=== PATIENT | female | born 1965 | race Two or more races ===

== ENCOUNTER 2018-01-23 00:05 | Emergency (ER) | payer SELFPAY ==
[~2018-01-23] VITALS: Ht 149.9 cm; Wt 72.6 kg
[2018-01-23 01:29] LABS: Basophils # (auto) 0.1 uL; Eosinophils # (auto) 0.1 uL; Hemoglobin 12.6 g/dL (12.2-16.2); Lymphocytes # (auto) 2.5 uL; Monocytes # (auto) 0.5 uL; Monocytes % (auto) 8.3 % (0.0-12.0); Neutrophils # (auto) 3.3 uL; Nucleated Red Blood Cells % 0.1 %
[2018-01-23 01:31] LABS: Basophils % (auto) 0.8 % (0.0-2.0); Eosinophils % (auto) 2.3 % (0.0-7.0); Hematocrit 39.2 % (36.0-46.0); Lymphocytes % (auto) 37.9 % (10.0-50.0); Mean Corpuscular Hemoglobin 27.8 pg (28.0-32.0); Mean Corpuscular Hgb Conc. 32.1 g/dL (32.0-36.0); Mean Corpuscular Volume 86.4 fL (80.0-100.0); Neutrophils % (auto) 50.7 % (37.0-80.0); Platelet Count (auto) 488 10^3/uL (140-450); Red Blood Cells 4.54 10^6/uL (4.0-5.20); Red Cell Distribution Width 14.7 % (11.8-14.3); White Blood Cell 6.6 10^3/uL (4.4-10.8)
[2018-01-23 01:35] LABS: INR 0.95 (0.9-1.15); Partial Thromboplastin Time 26.6 sec (22.64-33.71); Prothrombin Time 10.4 sec (9.37-12.3)
[2018-01-23 01:40] LABS: Albumin 3.5 g/dL (3.4-5.0); BUN/Creatinine Ratio 22.9; Calcium 9.1 mg/dL (8.5-10.1); Potassium 3.8 mmol/L (3.5-5.1)
[2018-01-23 01:43] LABS: Bilirubin, Total 0.3 mg/dL (0.2-1.0); Total Protein 7.6 g/dL (6.4-8.2)
[2018-01-23] MEDS ORDERED: medroxyPROGESTERone ACETATE 5 MG TAB PO ONE (09:15)
[2018-01-23 10:13] LABS: Urine Bacteria NONE SEEN /hpf (None Seen); Urine Mucus FEW (None Seen); Urine WBC 10 /hpf (0 - 5)
[2018-01-23 10:59] VITALS: BP 136/74
== END 2018-01-23 11:09 | disposition home or self-care (01) ==
LOC: ER 00:05
DX: N92.1 Excessive and frequent menstruation with irregular cycle (principal); Z90.710 Acquired absence of both cervix and uterus; Z90.89 Acquired absence of other organs
CPT/HCPCS: 36415; 80053; 81001; 81025; 85025; 85610; 85730; 86850; 86900; 86901

== ENCOUNTER 2019-01-02 13:25 | Emergency (ER) | payer MEDICAID ==
[~2019-01-02] VITALS: Ht 149.9 cm; Wt 72.6 kg
[2019-01-02 14:19] LABS: Urine Bacteria FEW /hpf (None Seen); Urine Blood Negative /uL (Negative); Urine Mucus FEW (None Seen); Urine Specific Gravity 1.031 (1.001-1.035); Urine WBC 4 /hpf (0 - 5)
[2019-01-02 14:52] LABS: Basophils # (auto) 0.1 uL; Basophils % (auto) 1.1 % (0.0-2.0); Eosinophils # (auto) 0.1 uL; Eosinophils % (auto) 1.8 % (0.0-7.0); Hematocrit 38.6 % (36.0-46.0); Hemoglobin 12.5 g/dL (12.2-16.2); Lymphocytes # (auto) 2.1 uL; Lymphocytes % (auto) 27.4 % (10.0-50.0); Mean Corpuscular Hemoglobin 26.2 pg (28.0-32.0); Mean Corpuscular Hgb Conc. 32.3 g/dL (32.0-36.0); Monocytes # (auto) 0.5 uL; Monocytes % (auto) 6.4 % (0.0-12.0); Neutrophils # (auto) 4.9 uL; Neutrophils % (auto) 63.3 % (37.0-80.0); Platelet Count (auto) 523 10^3/uL (140-450); Red Blood Cells 4.77 10^6/uL (4.0-5.20); Red Cell Distribution Width 17.2 % (11.8-14.3); White Blood Cell 7.7 10^3/uL (4.4-10.8)
[2019-01-02 15:05] LABS: Albumin 3.2 g/dL (3.4-5.0); Anion Gap 7 (5-15); Blood Urea Nitrogen 17 mg/dL (7-18); Calcium 8.4 mg/dL (8.5-10.1); Carbon Dioxide 27 mmol/L (21-32); Chloride 106 mmol/L (98-107); Glucose 96 mg/dL (74-106); Potassium 3.7 mmol/L (3.5-5.1); Sodium 140 mmol/L (136-145)
[2019-01-02 15:28] LABS: Alanine Aminotransferase 48 U/L (13-56); Aspartate Aminotransferase 34 U/L (15-37); BUN/Creatinine Ratio 15.5; GFR African American 67 mL/min; GFR Non-African American 55 mL/min
[2019-01-02 15:32] LABS: Alkaline Phosphatase 91 U/L (45-117); Bilirubin, Total 0.2 mg/dL (0.2-1.0); Total Protein 7.7 g/dL (6.4-8.2)
[2019-01-02 18:24] VITALS: BP 121/78
== END 2019-01-02 18:27 | disposition home or self-care (01) ==
LOC: ER 13:25
DX: R55 Syncope and collapse (principal); R07.89 Other chest pain; Z90.49 Acquired absence of other specified parts of digestive tract; Z98.51 Tubal ligation status
CPT/HCPCS: 36415; 70450; 80053; 81001; 84484; 85025; 93005

== ENCOUNTER 2019-01-17 14:26 | Emergency (ER) | payer MEDICAID ==
[~2019-01-17] VITALS: Ht 149.9 cm; Wt 78.0 kg
[2019-01-17 15:44] VITALS: BP 137/79
[2019-01-17] MEDS ORDERED: LIDOCAINE 2% (LOCAL ANESTH.) PF 5ml SDV ONE (16:06)
[2019-01-17] MEDS ORDERED: cefTRIAXone SOD 1,000 MG VL IM ONE (16:15)
[2019-01-17] MEDS ORDERED: LIDOCAINE HCL (LOCAL ANESTH.) 0.5 % 50ML MDV IJ ONE (16:15)
[2019-01-17] MEDS ORDERED: methylPREDNISolone SOD SUCC 125 MG/2 ML VL IM ONE (16:15)
== END 2019-01-17 16:43 | disposition home or self-care (01) ==
LOC: ER 14:30
DX: H60.12 Cellulitis of left external ear (principal); Z90.49 Acquired absence of other specified parts of digestive tract; Z90.89 Acquired absence of other organs; Z98.51 Tubal ligation status
CPT/HCPCS: 96372; 99283; J0696; J2001; J2930

== ENCOUNTER 2019-05-21 09:43 | Emergency (ER) | payer MEDICAID ==
[~2019-05-21] VITALS: Ht 149.9 cm; Wt 74.8 kg
[2019-05-21 09:54] VITALS: BP 120/81
[2019-05-21] MEDS ORDERED: methylPREDNISolone SOD SUCC 125 MG/2 ML VL IM ONE (10:30)
== END 2019-05-21 10:58 | disposition home or self-care (01) ==
LOC: ER 09:50
DX: S80.862A Insect bite (nonvenomous), left lower leg, initial encounter (principal); S80.861A Insect bite (nonvenomous), right lower leg, initial encounter; L23.9 Allergic contact dermatitis, unspecified cause; Z90.49 Acquired absence of other specified parts of digestive tract; Z98.51 Tubal ligation status; W57.XXXA Bitten or stung by nonvenomous insect and other nonvenomous arthropods, initial encounter; Y93.89 Activity, other specified; Y99.8 Other external cause status; Y92.59 Other trade areas as the place of occurrence of the external cause
CPT/HCPCS: 96372; 99283; J2930

== ENCOUNTER → 2021-09-13 | Emergency (ER) | payer MEDICAID ==
[~2021-09-13] VITALS: Ht 149.9 cm; Wt 72.6 kg
[2021-09-13 05:10] VITALS: BP 141/92
== END | disposition home or self-care (01) ==
LOC: ER 04:42
DX: L02.416 Cutaneous abscess of left lower limb (principal); E66.9 Obesity, unspecified; Z68.32 Body mass index [BMI] 32.0-32.9, adult; Z90.49 Acquired absence of other specified parts of digestive tract; Z98.51 Tubal ligation status

== ENCOUNTER 2022-09-13 14:21 | Emergency (ER) | payer MEDICAID ==
[~2022-09-13] VITALS: Ht 149.9 cm; Wt 72.0 kg
[2022-09-13 15:04] LABS: Basophils # (auto) 0.1 10 ^3/uL (0-0.2); Eosinophils # (auto) 0.1 10 ^3/uL (0-0.8); Lymphocytes # (auto) 1.9 10 ^3/uL (0.4-5.4); Neutrophils # (auto) 6.3 10 ^3/uL (1.6-8.6)
[2022-09-13 15:10] LABS: Basophils % (auto) 0.6 % (0.0-2.0); Eosinophils % (auto) 0.6 % (0.0-7.0); Hematocrit 42.3 % (36.0-46.0); Hemoglobin 13.5 g/dL (12.2-16.2); Lymphocytes % (auto) 21.3 % (10.0-50.0); Mean Corpuscular Hemoglobin 26.7 pg (28.0-32.0); Mean Corpuscular Hgb Conc. 31.8 g/dL (32.0-36.0); Mean Corpuscular Volume 83.9 fL (80.0-100.0); Monocytes # (auto) 0.5 10 ^3/uL (0-1.3); Monocytes % (auto) 6.1 % (0.0-12.0); Neutrophils % (auto) 71.4 % (37.0-80.0); Red Blood Cells 5.04 10^6/uL (4.0-5.20); Red Cell Distribution Width 16.9 % (11.8-14.3); White Blood Cell 8.8 10^3/uL (4.4-10.8)
[2022-09-13 15:22] LABS: Albumin 3.7 g/dL (3.4-5.0); BUN/Creatinine Ratio 26.9; Calcium 8.9 mg/dL (8.5-10.1); Potassium 4.3 mmol/L (3.5-5.1)
[2022-09-13 15:25] LABS: Bilirubin, Total 0.2 mg/dL (0.2-1.0); Total Protein 7.8 g/dL (6.4-8.2)
[2022-09-13] MEDS ORDERED: ONDANSETRON ODT 4 MG TAB PO ONE (15:30)
[2022-09-13] MEDS ORDERED: ALUM & MAG HYDROX-SIMETH LIQ(MAALOX) 30 ML PO ONE (15:30)
[2022-09-13] MEDS ORDERED: FAMOTIDINE 20 MG TAB PO ONE (15:30)
[2022-09-13] MEDS ORDERED: LIDOCAINE VISCOUS 2% 15ML UD PO ONE (15:30)
[2022-09-13 15:37] LABS: Urine Bacteria NONE SEEN /hpf (None Seen); Urine Blood Negative /uL (Negative); Urine Specific Gravity 1.028 (1.001-1.035); Urine WBC 1 /hpf (0 - 5)
[2022-09-13 15:49] LABS: Alcohol, Urine < 3.0 mg/dL (0-10); Amphetamine Screen, Urine NEGATIVE (NEGATIVE); Barbiturate Scree,Urine NEGATIVE (NEGATIVE); Benzodiazephine Screen, Urine NEGATIVE (NEGATIVE); Cannabinoid Screen, Urine NEGATIVE (NEGATIVE); Cocaine Screen, Urine NEGATIVE (NEGATIVE); Opiate Scree,Urine NEGATIVE (NEGATIVE); Phencyclidine Screen, Urine NEGATIVE (NEGATIVE)
[2022-09-13] MEDS ORDERED: HYDROcodone-ACET 5/325MG TAB PO ONE (16:15)
[2022-09-13] MEDS ORDERED: IOHEXOL 300 MG/ML 100ML BOTTLE IJ ONE (18:15)
[2022-09-13 23:20] VITALS: BP 126/81
== END 2022-09-13 23:22 | disposition home or self-care (01) ==
LOC: ER 14:21
DX: R11.2 Nausea with vomiting, unspecified (principal); R19.7 Diarrhea, unspecified; R10.13 Epigastric pain; K40.90 Unilateral inguinal hernia, without obstruction or gangrene, not specified as recurrent; Z87.19 Personal history of other diseases of the digestive system; Z90.49 Acquired absence of other specified parts of digestive tract; Z90.89 Acquired absence of other organs
CPT/HCPCS: 36415; 71045; 74177; 80053; 80307; 81001; 81025; 83690; 84484; 85025; 93005; 99285; Q0162; Q9967

== ENCOUNTER 2022-11-27 09:00 | Emergency (ER) | payer MEDICAID ==
[~2022-11-27] VITALS: Ht 147.3 cm; Wt 70.1 kg
[2022-11-27 09:29] VITALS: BP 105/69
== END 2022-11-27 11:18 | disposition home or self-care (01) ==
LOC: ER 09:00
DX: R22.0 Localized swelling, mass and lump, head (principal); Z90.49 Acquired absence of other specified parts of digestive tract; Z98.51 Tubal ligation status

== ENCOUNTER 2024-06-18 23:38 | Emergency (ER) | payer BC, MEDICAID ==
[~2024-06-18] VITALS: Ht 147.3 cm; Wt 69.9 kg
[2024-06-19 01:40] LABS: Basophils # (auto) 0.1 10 ^3/uL (0-0.2); Basophils % (auto) 1.7 % (0.0-2.0); Eosinophils # (auto) 0.2 10 ^3/uL (0-0.8); Eosinophils % (auto) 3.7 % (0.0-7.0); Hemoglobin 9.9 g/dL (12.2-16.2); Lymphocytes # (auto) 2.1 10 ^3/uL (0.4-5.4); Lymphocytes % (auto) 39.3 % (10.0-50.0); Mean Corpuscular Hemoglobin 21.6 pg (28.0-32.0); Mean Corpuscular Hgb Conc. 30.8 g/dL (32.0-36.0); Mean Corpuscular Volume 69.9 fL (80.0-100.0); Monocytes # (auto) 0.5 10 ^3/uL (0-1.3); Monocytes % (auto) 9.4 % (0.0-12.0); Neutrophils # (auto) 2.5 10 ^3/uL (1.6-8.6); Neutrophils % (auto) 45.9 % (37.0-80.0); Nucleated Red Blood Cells % 0.1 %; Platelet Count (auto) 641 10^3/uL (140-450); Red Blood Cells 4.58 10^6/uL (4.0-5.20); Red Cell Distribution Width 18.2 % (11.8-14.3); White Blood Cell 5.4 10^3/uL (4.4-10.8)
[2024-06-19] MEDS: HYDROcodone-ACET 5/325MG TAB PO ONE (01:43)
[2024-06-19 01:45] LABS: Chloride 107 mmol/L (98-107); Potassium 3.8 mmol/L (3.5-5.1); Sodium 140 mmol/L (136-145)
[2024-06-19 01:46] LABS: Anion Gap 8 (5-15); Carbon Dioxide 25 mmol/L (20-30)
[2024-06-19 01:47] VITALS: BP 133/85; TEMP 97.5
[2024-06-19 01:47] LABS: Calcium 9.4 mg/dL (8.7-10.4)
[2024-06-19 01:51] LABS: Blood Urea Nitrogen 21 mg/dL (9-23); Glucose 113 mg/dL (74-106)
[2024-06-19 01:54] VITALS: PULSE 81; RESP 18; O2SAT 98
[2024-06-19 02:02] LABS: BUN/Creatinine Ratio 21.6 (10.0-20.0)
[2024-06-19] MEDS ORDERED: IBUP1TAB5 PO (02:27)
[2024-06-19] MEDS ORDERED: AUG875T PO (02:27)
[2024-06-19] MEDS ORDERED: ACET-1304 PO (02:27)
== END 2024-06-19 02:36 | disposition home or self-care (01) ==
LOC: ER 23:38
DX: J32.9 Chronic sinusitis, unspecified (principal); F12.10 Cannabis abuse, uncomplicated; Z90.49 Acquired absence of other specified parts of digestive tract; Z98.51 Tubal ligation status
CPT/HCPCS: 36415; 70450; 80048; 85025

== ENCOUNTER 2024-11-26 15:02 | Inpatient (IN) | payer BC, MEDICAID ==
[~2024-11-26] VITALS: Ht 149.9 cm; Wt 76.5 kg
[2024-11-26] VITALS (9 sets, daily range): BP systolic 109–129; BP diastolic 52–69; PULSE 92–107; RESP 17–22; TEMP 97.4–98.8; O2SAT 95–96
[~2024-11-26 15:02] MED LIST: ACET-1304 PO; AUG875T PO; IBUP1TAB5 PO
--- NOTE | 2024-11-26 15:15 | ED.PDOC ---
SOB-HPI HPI Comments 59-year-old female presents with a chief complaint of SOB with and without exertion. Patient states that about 12 days ago she gave up drugs (methamphetamine) and has since developed SOB that is persistent. Patient mentions that she has had syncopal episodes from not being able to breathe properly, and also was "seeing stars" when attempting to climb stairs at the movie theater. Patient has pressured speech and appears anxious. No other symptoms or modifying factors present at this time. She was mildly tachycardic at arrival. 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 History Family History Family History: Family hx of DM Social History Smoker: Non-Smoker Alcohol: Rarely Drugs: Marijuana, Methamphetamine Lives In: Home Constitutional: reports: weakness; denies: chills, diaphoresis, fatigue, fever, malaise, sweats, others EENTM: denies: blurred vision, double vision, ear bleeding, ear discharge, ear drainage, ear pain, ear ringing, eye pain, eye redness, hearing loss, mouth pain, mouth swelling, nasal discharge, nose bleeding, nose congestion, nose pain, photophobia, tearing, throat pain, throat swelling, voice changes, others Respiratory: reports: SOB at rest, shortness of breath, SOB with excertion; denies: cough, hemoptysis, orthopnea, stridor, wheezing, others Cardiovascular: denies: chest pain, dizzy spells, diaphoresis, Dyspnea on exertion, edema, irregular heart beat, left arm pain, lightheadedness, palpitations, PND, syncope, others Gastrointestinal: denies: abdomen distended, abdominal pain, blood streaked bowels, constipated, diarrhea, dysphagia, difficulty swallowing, hematemesis, melena, nausea, poor appetite, poor fluid intake, rectal bleeding, rectal pain, vomiting, others Genitourinary: denies: abnormal vagina bleeding, burning, dyspareunia, dysuria, flank pain, frequency, hematuria, incontinence, pain, , vagina dis charge, urgency, others Neurological: denies: dizziness, fainting, headache, left sided numbness, left sided weakness, numbness, paresthesia, pre-existing deficit, right sided numbness, right sided weakness, seizure, speech problems, tingling, tremors, weakness, others Musculoskeletal: denies: back pain, gout, joint pain, joint swelling, muscle pain, muscle stiffness, neck pain, others Integumetry: denies: bruises, change in color, change in hair/nails, dryness, laceration, lesions, lumps, rash, wounds, others Allergic/Immunocompromised: denies: Difficulty Healing, Frequent Infections, Hives, Itching, others Hematologic/Lymphatic: denies: anemia, blood clots, easy bleeding, easy bruising, swollen glands, others Endocrine: denies: excessive hunger, excessive sweating, excessive thirst, excessive urination, flushing, intolerance to cold, intolerance to heat, unexplained weight gain, unexplained weight loss, others Psychiatric: denies: anxiety, bipolar disorder, depression, hopeless, panic disorder, schizophrenia, sleepless, suicidal, others All Other Systems: Reviewed and Negative Physical Exam Exam Comments Patient appears to be in poor overall health. General Appearance: Moderate Distress ([id number] distress due to shortness of breath concerns.), Normal HEENT: Normal ENT Inspection, Pharynx Normal, TMs Normal Neck: Full Range of Motion, Non-Tender, Normal, Normal Inspection Respiratory: Chest Non-Tender, Lungs Clear, No Accessory Muscle Use, No Respiratory Distress, Normal Breath Sounds, Other (Unremarkable auscultation bilateral lung rincon.) Cardiovascular: No Edema, No JVD, No Murmur, No Gallop, Normal Peripheral Pulses, Regular Rate/Rhythm Breast Exam: Deferred Gastrointestinal: No Organomegaly, Non Tender, No Pulsatile Mass, Normal Bowel Sounds, Soft Genitalia: Deferred Pelvic: Deferred Rectal: Deferred Extremities: No calf tenderness, Normal inspection, Normal range of motion, No pedal edema Musculoskeletal : Apperance: Normal Neurologic: Alert, No Motor Deficits, Normal Affect, Normal Mood, No Sensory Deficits Cerebellar Function: Normal Reflexes: Normal Skin: Dry, Normal Color, Warm Lymphatic: No Adenopathy Was a procedure done? Was a procedure done?: No Differential Dx Differential Diagnosis: Other (Pneumonia, upper respiratory infection, asthma, COPD, electrolyte abnormality, sepsis) X-Ray, Labs, Meds, VS Vital Signs Date Time Temp Pulse Resp B/P (MAP) Pulse Ox O2 Delivery O2 Flow Rate FiO2 11/26/24 16:35 18 97 Room Air* 0 21 11/26/24 15:19 89 11/26/24 15:14 98.1 107 18 129/61 (83) 99 11/26/24 15:13 18 99 Room Air* 0 21 Lab Test 11/26/24 16:44 11/26/24 15:24 11/26/24 15:19 Range/Units White Blood Count 10.8 4.4-10.8 10^3/uL Red Blood Count 2.44 L 4.0-5.20 10^6/uL Hemoglobin 4.5 *L 12.2-16.2 g/dL Hematocrit 16.0 L 36.0-46.0 % Mean Corpuscular Volume 65.7 L 80.0-100.0 fL Mean Corpuscular Hemoglobin 18.4 L 28.0-32.0 pg Mean Corpuscular Hemoglobin Concent 28.0 L 32.0-36.0 g/dL Red Cell Distribution Width 19.3 H 11.8-14.3 % Platelet Count 409 140-450 10^3/uL Mean Platelet Volume 7.1 6.9-10.8 fL Neutrophils (%) (Auto) 58.7 37.0-80.0 % Lymphocytes (%) (Auto) 31.1 10.0-50.0 % Monocytes (%) (Auto) 7.1 0.0-12.0 % Eosinophils (%) (Auto) 1.6 0.0-7.0 % Basophils (%) (Auto) 1.5 0.0-2.0 % Neutrophils # (Auto) 6.3 1.6-8.6 10 ^3/uL Lymphocytes # (Auto) 3.3 0.4-5.4 10 ^3/uL Monocytes # (Auto) 0.8 0-1.3 10 ^3/uL Eosinophils # (Auto) 0.2 0-0.8 10 ^3/uL Basophils # (Auto) 0.2 0-0.2 10 ^3/uL Nucleated Red Blood Cells 0.2 % Platelet Estimate Pending Large Platelets Few Hypochromasia (manual) Moderate Microcytosis Moderate Ovalocytes Few Stomatocytes Few D-Dimer, Quantitative Pending Sodium Level 138 136-145 mmol/L Potassium Level 4.2 3.5-5.1 mmol/L Chloride Level 108 H 98-107 mmol/L Carbon Dioxide Level 23 20-31 mmol/L Anion Gap 7 5-15 Blood Urea Nitrogen 13 9-23 mg/dL Creatinine 0.69 0.550-1.02 mg/dL Glomerular Filtration Rate Calc 101 >90 mL/min BUN/Creatinine Ratio 18.8 10.0-20.0 Serum Glucose 122 H 74-106 mg/dL Calcium Level 9.1 8.7-10.4 mg/dL B-Type Natriuretic Peptide 146.27 0-100 pg/mL Urine Color Light-yellow Yellow Urine Clarity Clear Clear Urine pH 7.0 5.0-9.0 Urine Specific [place] 1.016 1.001-1.035 Urine Protein Negative Negative Urine Ketones Negative Negative Urine Blood Negative Negative /uL Urine Nitrite Negative Negative Urine Bilirubin Negative Negative Urine Urobilinogen Normal Negative mg/dL Urine Leukocyte Esterase Negative Negative /uL Urine RBC None seen 0 - 4 /hpf Urine Microscopic WBC 0-5 /HPF Urine Squamous Epithelial Cells Few <5 /hpf Urine Bacteria None seen None Seen /hpf Urine Glucose Normal Normal mg/dL Current Medications Medications (Trade) Dose Ordered Sig/Shiv Route Start Time Stop Time Status Last Admin Albuterol (Ventolin Medneb) 2.5 mg ONCE ONCE NEB 11/26/24 15:15 11/26/24 15:16 DC 11/26/24 16:35 Ipratropium [place] (Atrovent Medneb) 0.5 mg ONCE ONCE NEB 11/26/24 15:15 11/26/24 15:16 DC 11/26/24 16:36 Dexamethasone Sodium Phosphate (Decadron Injection) 10 mg ONCE ONCE IM 11/26/24 15:15 11/26/24 15:16 DC 11/26/24 16:21 X-Ray, Labs, Meds, VS Comment All studies performed the ED were evaluated by me personally. Imaging studies revealed pulmonary vascular congestion as well as a large hiatal hernia. Serum laboratories revealed a critical anemia with a hemoglobin and hematocrit of 12.5 and 16 respectively. EKG revealed a sinus rhythm with a rate of 89. Low voltage in the precordial leads as well as RSR in V1 and V2. ID interval 143 and QT interval of 363. Relatively unremarkable EKG. Patient does not have any history of bleeding concerns and therefore, will be admitted for evaluation and investigation of possible bleeding sources including GI evaluation. Time of 1ST Reevaluation: 18:46 Reevaluation 1ST: Improved Consultation: PCP Patient Education/Counseling: Diagnosis, Treatment, Prognosis Family Education/Counseling: Diagnosis, Treatment, Prognosis Departure 1 Departure Time of Disposition: 18:47 Impression: Primary Impression: Anemia of unknown etiology Additional Impression: Shortness of breath Disposition: ADMITTED INPATIENT Condition: Stable Discharged With: Self Critical Care Note Critical Care Time?: No Stability Stability form required: No I personally scribed for FRANK FALCON PAC ([email or web address]) on 11/26/24 at 15:15. Electronically submitted by Hadley Borja ([email or web address]). FRANK FALCON PAC Nov 26, 2024 15:15
--- NOTE | 2024-11-26 15:40 | DVH ---
CLINICAL INFORMATION: 59 years old, Female; Shortness of breath. TECHNIQUE: Single AP portable chest radiograph was obtained. COMPARISON: CHEST PORTABLE on DOS: 09/13/22, CXRP on DOS: 09/13/22 FINDINGS: Lungs: Mild atelectasis in the lung bases. No focal consolidation. No pneumothorax or pleural effusio n. Cardiac: Heart size is within normal limits. Pulmonary vasculature: Mild prominence of the pulmonary vasculature. Mediastinum/johan: Unremarkable. Bones: No acute osseous abnormality identified. Other: Large hiatal hernia. IMPRESSION: 1. Mild prominence of the pulmonary vasculature, May suggest a degree of pulmonary vascular congestio n in the appropriate clinical setting. 2. Large hiatal hernia.
[2024-11-26 15:45] LABS: Potassium 4.2 mmol/L (3.5-5.1); Sodium 138 mmol/L (136-145)
[2024-11-26 15:46] LABS: Anion Gap 7 (5-15); Calcium 9.1 mg/dL (8.7-10.4); Carbon Dioxide 23 mmol/L (20-31)
[2024-11-26 15:51] LABS: BUN/Creatinine Ratio 18.8 (10.0-20.0); Blood Urea Nitrogen 13 mg/dL (9-23)
[2024-11-26 15:55] LABS: Urine Bacteria None Seen /hpf (None Seen)
[2024-11-26 15:56] LABS: Chloride 108 mmol/L (98-107); Glucose 122 mg/dL (74-106)
[2024-11-26 16:09] LABS: Urine Blood Negative /uL (Negative); Urine Clarity Clear (Clear); Urine Color Light-Yellow (Yellow); Urine Protein, UAD Negative (Negative); Urine Specific Gravity 1.016 (1.001-1.035); Urine Squamous Epithelial Cell FEW /hpf (<5); Urine Urobilinogen Normal (Negative)
[2024-11-26] MEDS: DexAMETHasone SOD PHOS 10MG/1ML VIAL INJ IM ONE (16:21)
[2024-11-26] MEDS: ALBUTEROL SULF 2.5 MG/0.5ML(0.5%) NEB SOLN NEB ONE (16:35)
[2024-11-26] MEDS: IPRATROPIUM BROM 0.5 MG/2.5ML INH SOL NEB ONE (16:36)
[2024-11-26 17:22] LABS: Basophils # (auto) 0.2 10 ^3/uL (0-0.2); Basophils % (auto) 1.5 % (0.0-2.0); Eosinophils # (auto) 0.2 10 ^3/uL (0-0.8); Eosinophils % (auto) 1.6 % (0.0-7.0); Lymphocytes # (auto) 3.3 10 ^3/uL (0.4-5.4); Lymphocytes % (auto) 31.1 % (10.0-50.0); Mean Corpuscular Hemoglobin 18.4 pg (28.0-32.0); Mean Corpuscular Volume 65.7 fL (80.0-100.0); Monocytes # (auto) 0.8 10 ^3/uL (0-1.3); Monocytes % (auto) 7.1 % (0.0-12.0); Neutrophils # (auto) 6.3 10 ^3/uL (1.6-8.6); Neutrophils % (auto) 58.7 % (37.0-80.0); Nucleated Red Blood Cells % 0.2 %; Platelet Count (auto) 409 10^3/uL (140-450); Red Blood Cells 2.44 10^6/uL (4.0-5.20); Red Cell Distribution Width 19.3 % (11.8-14.3); White Blood Cell 10.8 10^3/uL (4.4-10.8)
[2024-11-26 17:23] LABS: Hemoglobin 4.5 g/dL (12.2-16.2)
[2024-11-26 18:14] LABS: Hypochromia Moderate
[2024-11-26 18:16] LABS: Large Platelets FEW; Ovalocytes FEW; Stomatocytes Few
[2024-11-26 19:02] LABS: Platelet Estimate Adequate
[2024-11-26] MEDS: SODIUM CHLORIDE 0.9% 1,000 ML IV SCH (21:00)
[2024-11-26] MEDS ORDERED: IPRATROPIUM BROM 0.5 MG/2.5ML INH SOL NEB PRN (21:00)
[2024-11-26] MEDS ORDERED: DOCUSATE SOD 100 MG CAP PO PRN (21:00)
[2024-11-26] MEDS ORDERED: ALBUTEROL SULF 2.5 MG/0.5ML(0.5%) NEB SOLN NEB PRN (21:00)
[2024-11-26] MEDS: IOHEXOL 350 MG/ML 100ML IJ ONE (23:01)
--- NOTE | 2024-11-26 23:26 | DVHHP2 ---
History of Present Illness Reason for Visit: Severe anemia History of Present Illness The patient is a 59-year-old female with past medical history of PUD who presented to [facility] ED with complaint of shortness of breaths. Patient reports that about 12 days ago she gave up drugs (methamphetamine) and has since developed SOB that is persistent. Patient was seen and evaluated in the ED, laboratory data shows WBC 10.8, hemoglobin 4.5, hematocrit 16.0, platelets 409, sodium 138, potassium 4.2, BUN 13, creatinine 0.69, GFR 101, glucose 122, BNP 146.27, D-dimer 0.92, blood pressure 129/61, heart rate 89, temperature 98.1 F, O2 saturation 99% on oxygen. CT angiography showed no evidence of pulmonary arterial thromboembolism. Patient will receive 2 units of PRBC, please see medication orders section in the computer. On my assessment, patient denied chest pain, no headache, no dizziness, shortness of breath, no nausea, no vomiting, no fever, no chills. Patient was admitted for further evaluation and medical management. Past Medical History PUD Past Surgical History Cholecystectomy, , Tonsillectomy, Tubal Ligation Family History Reviewed, noncontributory to the management of this case. Past Social History The patient lives at home, denies smoking, no alcohol, uses marijuana and methamphetamine. Review of Systems Constitutional: Yes: Weakness; No: Fever, Chills, Sweats, Malaise, Other Eyes: No: Pain, Vision change, Conjunctivae inflammation, Eyelid inflammation, Other, Redness ENT: No: Ear pain, Ear discharge, Nose pain, Nose discharge, Nose congestion, Mouth pain, Mouth swelling, Throat pain, Throat swelling, Other Respiratory: Shortness of breath, SOB with excertion, Other (SOB at rest); No: Cough, Dry, Wheezing, Hemoptysis, Pleuritic Pain, Sputum, Wheezing Cardiovascular: No: Chest Pain, Palpitations, Orthopnea, Paroxysmal Noc. Dyspnea, Edema, Lt Headedness, Other Gastrointestinal: No: Nausea, Vomiting, Abdominal Pain, Diarrhea, Constipation, Melena, Hematochezia, Other Genitourinary: No Dysuria, No Frequency, No Incontinence, No Hematuria, No Retention, No Other Musculoskeletal: No: other, neck pain, shoulder pain, arm pain, back pain, hand pain, leg pain, foot pain Skin: No: Rash, Lesions, Jaundice, Bruising, Other Neurological: No: Weakness, Numbness, Incoordination, Change in speech, Confusion, Seizures, Other Allergies: Coded Allergies: NO KNOWN ALLERGIES (Unverified , 01/30/14) Medications Current Medications Medications Dose Ordered Sig/Shiv Route Start Time Stop Time Status Last Admin Dose Admin Albuterol 2.5 mg Q4HPRN PRN NEB 11/26/24 21:00 Ipratropium [place] 0.5 mg Q4HPRN PRN NEB 11/26/24 21:00 Sodium Chloride 1,000 ml @ 60 mls/hr [id number] IV 11/26/24 21:00 11/26/24 21:00 60 MLS/HR Acetaminophen/ Hydrocodone Bitart 1 tab Q4HP PRN PO 11/26/24 21:00 Ondansetron HCl 4 mg Q4HP PRN IV 11/26/24 21:00 Docusate Sodium 100 mg BIDPRN PRN PO 11/26/24 21:00 Acetaminophen 650 mg Q6HP PRN PO 11/26/24 21:00 Exam Vital Signs Vital Signs Date Time Temp Pulse Resp B/P (MAP) Pulse Ox O2 Delivery O2 Flow Rate FiO2 11/26/24 22:20 98.3 98 22 115/59 98.3 11/26/24 21:03 95 0.0 21 11/26/24 19:04 Room Air* General Appearance: Alert, Oriented X3, Cooperative, No acute distress HEENT: Atraumatic, PERRLA, EOMI, Mucous membr. moist/pink Respiratory: Clear to auscultation, Normal air movement Cardiovascular: Regular rate, Normal S1, Normal S2, No murmurs Abdominal: Normal bowel sounds, Soft, No tenderness, No hepatospenomegaly, No masses Extremities: No clubbing, No cyanosis, No edema, Normal pulses, No tenderness/swelling Skin: No rashes, No breakdown, No significant lesion Neuro: Normal speech, Normal tone, Sensation intact, Cranial nerves 3-12 NL, Reflexes 2+, Other (Generalized weakness) Psych/Mental Status: Mental status NL, Mood NL Labs/Xrays Labs Test 11/26/24 16:44 11/26/24 15:24 11/26/24 15:19 Range/Units White Blood Count 10.8 4.4-10.8 10^3/uL Red Blood Count 2.44 L 4.0-5.20 10^6/uL Hemoglobin 4.5 *L 12.2-16.2 g/dL Hematocrit 16.0 L 36.0-46.0 % Mean Corpuscular Volume 65.7 L 80.0-100.0 fL Mean Corpuscular Hemoglobin 18.4 L 28.0-32.0 pg Mean Corpuscular Hemoglobin Concent 28.0 L 32.0-36.0 g/dL Red Cell Distribution Width 19.3 H 11.8-14.3 % Platelet Count 409 140-450 10^3/uL Mean Platelet Volume 7.1 6.9-10.8 fL Neutrophils (%) (Auto) 58.7 37.0-80.0 % Lymphocytes (%) (Auto) 31.1 10.0-50.0 % Monocytes (%) (Auto) 7.1 0.0-12.0 % Eosinophils (%) (Auto) 1.6 0.0-7.0 % Basophils (%) (Auto) 1.5 0.0-2.0 % Neutrophils # (Auto) 6.3 1.6-8.6 10 ^3/uL Lymphocytes # (Auto) 3.3 0.4-5.4 10 ^3/uL Monocytes # (Auto) 0.8 0-1.3 10 ^3/uL Eosinophils # (Auto) 0.2 0-0.8 10 ^3/uL Basophils # (Auto) 0.2 0-0.2 10 ^3/uL Nucleated Red Blood Cells 0.2 % Platelet Estimate Adequate Large Platelets Few Hypochromasia (manual) Moderate Microcytosis Moderate Ovalocytes Few Stomatocytes Few D-Dimer, Quantitative 0.92 H 0.0-0.49 mg/L FEU Sodium Level 138 136-145 mmol/L Potassium Level 4.2 3.5-5.1 mmol/L Chloride Level 108 H 98-107 mmol/L Carbon Dioxide Level 23 20-31 mmol/L Anion Gap 7 5-15 Blood Urea Nitrogen 13 9-23 mg/dL Creatinine 0.69 0.550-1.02 mg/dL Glomerular Filtration Rate Calc 101 >90 mL/min BUN/Creatinine Ratio 18.8 10.0-20.0 Serum Glucose 122 H 74-106 mg/dL Calcium Level 9.1 8.7-10.4 mg/dL B-Type Natriuretic Peptide 146.27 0-100 pg/mL Urine Color Light-yellow Yellow Urine Clarity Clear Clear Urine pH 7.0 5.0-9.0 Urine Specific [place] 1.016 1.001-1.035 Urine Protein Negative Negative Urine Ketones Negative Negative Urine Blood Negative Negative /uL Urine Nitrite Negative Negative Urine Bilirubin Negative Negative Urine Urobilinogen Normal Negative mg/dL Urine Leukocyte Esterase Negative Negative /uL Urine RBC None seen 0 - 4 /hpf Urine Microscopic WBC 0-5 /HPF Urine Squamous Epithelial Cells Few <5 /hpf Urine Bacteria None seen None Seen /hpf Urine Glucose Normal Normal mg/dL PATIENT: CARMEN DUPONT ACCT: [id number] UNIT: [id number] : 1965 LOC: [facility] ROOM / BED: [address] [place] [address] AGE / SEX: 59 / F ADM STATUS: ADM IN SERVICE 03 ORDERING PHYSICIAN: GARCÍA WATSON DNP PROCEDURE(s): CTACH - CT ANGIO CHEST CONTRAST REASON: Elevated D-dimer ORDER NUMBER(s): [id number], ACCESSION NUMBER(s): [id number] Examination: CTACH CLINICAL INDICATION: Elevated D-dimer DIREAS;Reason for Exam: Stretcher;Stretcher;Modes of Transportation DITRANS;How is patient transported? ;Y OECTB;Has the patient had a recent BUN/CREAT? ;N OECTC;Has the patient had IV contrast within last 48 hours? ;Y OECTN;Has patient been NPO for at least 4 hours COMPARISON: None. CONTRAST USED: None. TECHNIQUE: A contrast enhanced CT Angiography of chest is performed after administration of intravenous contrast medium. Appropriate 3D, MPR, CMPR, thick and thin MIP and VRT views were obtained from multiple phase reconstructions. The CT scan was conducted according to ALARA (As Low as Reasonably Achievable) principles, with multiplanar reconstructions obtained. FINDINGS: Lower neck and thyroid: Appear normal. The aorta appears normal. No evidence of aneurysm or dissection is seen. No mediastinal masses or lymphadenopathy is seen. Central pulmonary arteries appear unremarkable. The right and left main pulmonary arteries appear normal. No evidence of filling defect is seen. Lung parenchyma appears unremarkable. No pleural effusion is seen. No pericardial effusion is seen. Visualized bones appear normal. Visualized Upper Abdomen: Post cholecystectomy status. Large sliding hiatus hernia is seen. IMPRESSION: 1. No evidence of pulmonary arterial thromboembolism. 2. No evidence of aortic aneurysm or dissection is seen. 3. Additional chronic and/or ancillary findings as detailed above. 4. Suggest clinical correlation and follow-up as clinically deemed necessary. ORDERING PHYSICIAN: FRANK FALCON PAC PROCEDURE(s): CXRP - CHEST PORTABLE REASON: Shortness of breath ORDER NUMBER(s): [id number], ACCESSION NUMBER(s): [id number] CLINICAL INFORMATION: 59 years old, Female; Shortness of breath. TECHNIQUE: Single AP portable chest radiograph was obtained. COMPARISON: CHEST PORTABLE on DOS: 09/13/22, CXRP on DOS: 09/13/22 FINDINGS: Lungs: Mild atelectasis in the lung bases. No focal consolidation. No pneumothorax or pleural effusion. Cardiac: Heart size is within normal limits. Pulmonary vasculature: Mild prominence of the pulmonary vasculature. Mediastinum/johan: Unremarkable. Bones: No acute osseous abnormality identified. Other: Large hiatal hernia. IMPRESSION: 1. Mild prominence of the pulmonary vasculature, May suggest a degree of pulmonary vascular congestion in the appropriate clinical setting. 2. Large hiatal hernia. Assessment/Plan Assessment/Plan Anemia of unknown etiology Elevated D-dimer Shortness of breath Generalized weakness Plan 1. Admit to telemetry unit 2. Breathing treatment 3. Pain control management 4. Management of fluids and electrolytes 5. Consultation for Hematology/Oncology 6. Diagnostic tests chest x-ray 7. DVT prophylaxis-on SCDs 8. Repeat labs CBC, CMP in a.m. 9. Continue with current medical management 10. Treatment plan discussed with patient and RN. Patient verbalized understanding. Plan discussed with: Patient, Other (RN) My Orders Orders - GARCÍA WATSON DNP Procedure Category Date Status Time Albuterol Medneb PHA 11/26/24 In Process (Ventolin Medneb) 21:00 Ipratropium Medneb PHA 11/26/24 In Process (Atrovent Medneb) 21:00 * Hematology/Oncology CONS 11/26/24 Transmitted Consult 20:52 Allergies CARINE 11/26/24 In Process 20:52 Code Status CODE 11/26/24 Transmitted 20:52 Sodium Chloride 0.9% PHA 11/26/24 In Process 21:00 Oxygen Per Hour RT 11/26/24 Transmitted 20:52 Hydrocodone-Acet PHA 11/26/24 In Process 5/325mg Tab ([place] 21:00 Ondansetron Hcl PHA 11/26/24 In Process (Zofran) 21:00 Docusate Sodium PHA 11/26/24 In Process Capsule (Colace 21:00 Complete Blood Count LAB 11/27/24 Verified 04:00 Comprehensive LAB 11/27/24 Verified Metabolic Panel 04:00 Cardiac DIET 11/27/24 Transmitted Diet-2gna,Lofat,Lochol Breakfast Condition: Serious CARINE 11/26/24 In Process 20:52 Acetaminophen Tablet PHA 11/26/24 In Process (Tylenol Tablet) 21:00 Bedrest With Bathroom CARINE 11/26/24 In Process Privileg 20:52 Sequential CARINE 11/26/[address] Device Ct Angio Chest CT 11/26/24 Logged Contrast 21:04 Problem List: (1) Anemia of unknown etiology (2) Elevated d-dimer (3) Shortness of breath (4) Generalized weakness Date of Service: Nov 26, 2024 Billing Provider: GARCÍA WATSON DNP Common Visit Codes: 46514-THOYQUV INP/OBS CARE (HIGH) GARCÍA WATSON DNP Nov 26, 2024 23:26
[2024-11-26] MEDS ORDERED: MORPHINE SULFATE INJ 2 MG/ml SYRG IV PRN (23:30)
[2024-11-26] MEDS ORDERED: NITROGLYCERIN 0.4 MG SL TAB SL PRN (23:30)
[2024-11-27] VITALS (7 sets, daily range): BP systolic 122–128; BP diastolic 65–70; PULSE 72–97; RESP 16–22; TEMP 97.9–98.5; O2SAT 94–98
[2024-11-27] MEDS: ONDANSETRON HCL 4 MG/2 ML VIAL IV PRN (02:27)
[2024-11-27] MEDS: ACETAMINOPHEN 325 MG TAB PO PRN (02:28)
[2024-11-27] MEDS: HYDROcodone-ACET 5/325MG TAB PO PRN (02:28)
--- NOTE | 2024-11-27 03:58 | DVH ---
Examination: CTACH CLINICAL INDICATION: Elevated D-dimer DIREAS;Reason for Exam: Stretcher;Stretcher;Modes of Transporta tion DITRANS;How is patient transported? ;Y OECTB;Has the patient had a recent BUN/CREAT? ;N OECTC;Yadav s the patient had IV contrast within last 48 hours? ;Y OECTN;Has patient been NPO for at least 4 hour s COMPARISON: None. CONTRAST USED: None. TECHNIQUE: A contrast enhanced CT Angiography of chest is performed after administration of intraven ous contrast medium. Appropriate 3D, MPR, CMPR, thick and thin MIP and VRT views were obtained from multiple phase reconstructions. The CT scan was conducted according to ALARA (As Low as Reasonably A chievable) principles, with multiplanar reconstructions obtained. FINDINGS: Lower neck and thyroid: Appear normal. The aorta appears normal. No evidence of aneurysm or dissection is seen. No mediastinal masses or lymphadenopathy is seen. Central pulmonary arteries appear unremarkable. The right and left main pulmonary arteries appear no rmal. No evidence of filling defect is seen. Lung parenchyma appears unremarkable. No pleural effusion is seen. No pericardial effusion is seen. Visualized bones appear normal. Visualized Upper Abdomen: Post cholecystectomy status. Large sliding hiatus hernia is seen. IMPRESSION: 1. No evidence of pulmonary arterial thromboembolism. 2. No evidence of aortic aneurysm or dissection is seen. 3. Additional chronic and/or ancillary findings as detailed above. 4. Suggest clinical correlation and follow-up as clinically deemed necessary. Electronically Signed 11/27/2024 03:56 [place] Davidson
[2024-11-27 07:40] LABS: Basophils # (auto) 0.1 10 ^3/uL (0-0.2); Eosinophils # (auto) 0 10 ^3/uL (0-0.8); Hemoglobin 7.3 g/dL (12.2-16.2); Mean Corpuscular Hemoglobin 21.9 pg (28.0-32.0); White Blood Cell 10.4 10^3/uL (4.4-10.8)
[2024-11-27 07:41] LABS: Basophils % (auto) 0.7 % (0.0-2.0); Hematocrit 23.8 % (36.0-46.0); Lymphocytes # (auto) 1.6 10 ^3/uL (0.4-5.4); Lymphocytes % (auto) 15.5 % (10.0-50.0); Mean Corpuscular Hgb Conc. 30.5 g/dL (32.0-36.0); Mean Corpuscular Volume 71.8 fL (80.0-100.0); Monocytes # (auto) 0.7 10 ^3/uL (0-1.3); Monocytes % (auto) 6.9 % (0.0-12.0); Neutrophils % (auto) 76.9 % (37.0-80.0); Nucleated Red Blood Cells % 0.1 %; Platelet Count (auto) 362 10^3/uL (140-450); Red Blood Cells 3.31 10^6/uL (4.0-5.20); Red Cell Distribution Width 26.2 % (11.8-14.3)
[2024-11-27 08:02] LABS: Alanine Aminotransferase 28 U/L (7-40); Albumin 4.1 g/dL (3.2-4.8); Alkaline Phosphatase 101 U/L (46-116); Anion Gap 8 (5-15); Aspartate Aminotransferase 26 U/L (13-40); BUN/Creatinine Ratio 13.5 (10.0-20.0); Blood Urea Nitrogen 10 mg/dL (9-23); Calcium 9.3 mg/dL (8.7-10.4); Carbon Dioxide 21 mmol/L (20-31); Potassium 4.7 mmol/L (3.5-5.1)
[2024-11-27 08:03] LABS: Bilirubin, Total 0.4 mg/dL (0.2-1.0); Total Protein 6.6 g/dL (5.7-8.2)
[2024-11-27 08:10] LABS: Chloride 107 mmol/L (98-107); Glucose 106 mg/dL (74-106); Sodium 136 mmol/L (136-145)
[2024-11-27] MEDS: DEXTROSE (50%) 50ML SYRG IV ONE ×2 (09:18)
[2024-11-27] MEDS: ACCU-CHEK COMFORT CURVE STRIP VI ONE ×2 (09:18)
[2024-11-28] VITALS (11 sets, daily range): BP systolic 100–136; BP diastolic 54–97; PULSE 83–90; RESP 16–19; TEMP 97.1–98.8; O2SAT 96–100
[2024-11-28] MEDS ORDERED: OME20GT PO (03:30)
--- NOTE | 2024-11-28 07:18 | ECG ---
[facility] Test Date: 2024-11-26 Test Time: 15:19:19 Pat Name: CARMEN DUPONT Department: ER Room: 0289T A Gender: F [employer] Refinisher: MIGUEL ANGEL : 1965 Requested By: FRANK FALCON Order Number: [id number] Reading MD: Tu Joyner Measurements Intervals [place] Rate: 89 P: 42 MS: 143 QRS: 21 QRSD: 86 T: 32 QT: 363 QTc: 442 Interpretive Statements Sinus rhythm Low voltage, precordial leads RSR' in V1 or V2, right VCD or RVH Electronically Signed On 11-28-2024 14:43:55 PST by Tu Joyner Please click the below link to view image of tracing.
[2024-11-28] MEDS ORDERED: OMEPRAZOLE-SOD BICARB 20 MG POWDER PO SCH (08:00)
[2024-11-28 08:09] LABS: Basophils # (auto) 0.2 10 ^3/uL (0-0.2); Eosinophils # (auto) 0.2 10 ^3/uL (0-0.8); Eosinophils % (auto) 1.8 % (0.0-7.0); Hematocrit 25.5 % (36.0-46.0); Mean Corpuscular Hemoglobin 21.2 pg (28.0-32.0); Mean Corpuscular Hgb Conc. 29.3 g/dL (32.0-36.0); Monocytes # (auto) 0.9 10 ^3/uL (0-1.3); Red Blood Cells 3.51 10^6/uL (4.0-5.20)
[2024-11-28 08:11] LABS: Basophils % (auto) 1.5 % (0.0-2.0); Hemoglobin 7.4 g/dL (12.2-16.2); Lymphocytes # (auto) 2.2 10 ^3/uL (0.4-5.4); Lymphocytes % (auto) 17.5 % (10.0-50.0); Mean Corpuscular Volume 72.4 fL (80.0-100.0); Monocytes % (auto) 6.9 % (0.0-12.0); Neutrophils # (auto) 9.1 10 ^3/uL (1.6-8.6); Neutrophils % (auto) 72.3 % (37.0-80.0); Platelet Count (auto) 406 10^3/uL (140-450); Red Cell Distribution Width 27.7 % (11.8-14.3); White Blood Cell 12.6 10^3/uL (4.4-10.8)
[2024-11-28] MEDS: PANTOPRAZOLE 40 MG TAB PO SCH ×2 (10:01→21:43)
[2024-11-28] MEDS ORDERED: GABA-1250 PO (11:21)
--- NOTE | 2024-11-28 20:27 | DVHINCON2 ---
Date of service: Nov 28, 2024 Referring Physician Delmer Winter Reason for Consultation Severe anemia History of Present Illness The patient is a 59-year-old female with past medical history of Hiatal hernia and PUD ?who presented to [facility] ED with complaint of shortness of breaths. Patient reports that about 12 days ago she gave up drugs (methamphetamine) and has since developed SOB that is persistent. Patient was found to have severe anemia with a hemoglobin of 4.5. Patient received 2 units PRBC and repeat hemoglobin is over seven. She denies any nausea vomiting hematemesis or bright red blood per rectum. Patient stated a few days ago she had noted some dark stools. CT angiography showed no evidence of pulmonary arterial thromboembolism. Patient stated she had a EGD and a colonoscopy about a year or two years ago. She was diagnosed with a hiatal hernia and some diverticular disease. Patient denied taking any recent NSAIDs. She has been on gabapentin and Tylenol for her left shoulder pain Past Medical History Past Medical History PUD; Hiatal hernia Diverticulosis Past Surgical History Past Surgical History Cholecystectomy, , Tonsillectomy, Tubal Ligation Family History: Chronic obstructive pulmonary disease G8 MOTHER Allergies: Coded Allergies: NO KNOWN ALLERGIES (Unverified , 01/30/14) Home Meds Active Scripts Ibuprofen Micronized (Ibuprofen) 600 Mg Tab, 600 MG PO Q6HP PRN, #30 TAB Prov:JENNA NAVARRO MD 06/19/24 Acetaminophen (Tylenol Extra Strength) 500 Mg Tab, 1000 MG PO Q6HP PRN, #30 TAB Prov:JENNA NAVARRO MD 06/19/24 Amoxicillin & Pot Clavulanate (AUGMENTIN TABLET) 875 Mg Tb, 875 MG PO BID for 10 Days, #20 TAB Prov:JENNA NAVARRO MD 06/19/24 Reported Medications Gabapentin (Gabapentin) 300 Mg Cap, 300 MG PO PRN for 30 Days, MG 11/28/24 Omeprazole (Prilosec Susp (For Gt)) 20 Mg Ss, 20 MG PO DAILY, ML 11/28/24 Current Medications Current Medications Medications (Trade) Dose Ordered Sig/Shiv Route PRN Reason Start Time Stop Time Status Last Admin Omeprazole (Omeprazole/ Sodium Bicarbo 20-1680 Mg) 20 mg DAILY PO 11/28/24 08:00 11/28/24 09:39 DC Pantoprazole Sodium (Protonix Tablet) 40 mg DAILY PO 11/28/24 10:00 11/28/24 10:01 Vital Signs Vital Signs Date Time Temp Pulse Resp B/P (MAP) Pulse Ox O2 Delivery O2 Flow Rate FiO2 11/28/24 17:00 98.6 86 16 100/57 (71) 98 98.6 11/28/24 08:00 Room Air* 0 21 Physical Exam General Appearance: Alert, Oriented X3, Cooperative, No acute distress HEENT: Atraumatic, PERRLA, EOMI, Mucous membr. moist/pink Respiratory: Clear to auscultation, Normal air movement Cardiovascular: Regular rate, Normal S1, Normal S2, No murmurs Abdominal: Normal bowel sounds, Soft, No tenderness, No hepatospenomegaly, No masses Extremities: No clubbing, No cyanosis, No edema, Normal pulses, No tenderness/swelling Skin: No rashes, No breakdown, No significant lesion Neuro: Normal speech, Normal tone, Sensation intact, Cranial nerves 3-12 NL, Reflexes 2+, Other (Generalized weakness) Psych/Mental Status: Mental status NL, Mood NL Labs/Diagnostic Data Labs Test 11/28/24 07:48 11/27/24 09:14 11/27/24 07:19 11/26/24 16:44 Range/Units White Blood Count 12.6 H 4.4-10.8 10^3/uL Red Blood Count 3.51 L 4.0-5.20 10^6/uL Hemoglobin 7.4 L 12.2-16.2 g/dL Hematocrit 25.5 L 36.0-46.0 % Mean Corpuscular Volume 72.4 L 80.0-100.0 fL Mean Corpuscular Hemoglobin 21.2 L 28.0-32.0 pg Mean Corpuscular Hemoglobin Concent 29.3 L 32.0-36.0 g/dL Red Cell Distribution Width 27.7 H 11.8-14.3 % Platelet Count 406 140-450 10^3/uL Mean Platelet Volume 7.2 6.9-10.8 fL Neutrophils (%) (Auto) 72.3 37.0-80.0 % Lymphocytes (%) (Auto) 17.5 10.0-50.0 % Monocytes (%) (Auto) 6.9 0.0-12.0 % Eosinophils (%) (Auto) 1.8 0.0-7.0 % Basophils (%) (Auto) 1.5 0.0-2.0 % Neutrophils # (Auto) 9.1 H 1.6-8.6 10 ^3/uL Lymphocytes # (Auto) 2.2 0.4-5.4 10 ^3/uL Monocytes # (Auto) 0.9 0-1.3 10 ^3/uL Eosinophils # (Auto) 0.2 0-0.8 10 ^3/uL Basophils # (Auto) 0.2 0-0.2 10 ^3/uL Nucleated Red Blood Cells 0.0 % POC Glucose 135 H 70-106 mg/dl Sodium Level 136 136-145 mmol/L Potassium Level 4.7 3.5-5.1 mmol/L Chloride Level 107 98-107 mmol/L Carbon Dioxide Level 21 20-31 mmol/L Anion Gap 8 5-15 Blood Urea Nitrogen 10 9-23 mg/dL Creatinine 0.74 0.550-1.02 mg/dL Glomerular Filtration Rate Calc 94 >90 mL/min BUN/Creatinine Ratio 13.5 10.0-20.0 Serum Glucose 106 74-106 mg/dL Calcium Level 9.3 8.7-10.4 mg/dL Total Bilirubin 0.4 0.2-1.0 mg/dL Aspartate Amino Transferase (AST) 26 13-40 U/L Alanine Aminotransferase (ALT) 28 7-40 U/L Alkaline Phosphatase 101 46-116 U/L Total Protein 6.6 5.7-8.2 g/dL Albumin 4.1 3.2-4.8 g/dL Platelet Estimate Adequate Large Platelets Few Hypochromasia (manual) Moderate Microcytosis Moderate Ovalocytes Few Stomatocytes Few Test 11/26/24 15:24 11/26/24 15:19 Range/Units D-Dimer, Quantitative 0.92 H 0.0-0.49 mg/L FEU B-Type Natriuretic Peptide 146.27 0-100 pg/mL Urine Color Light-yellow Yellow Urine Clarity Clear Clear Urine pH 7.0 5.0-9.0 Urine Specific [place] 1.016 1.001-1.035 Urine Protein Negative Negative Urine Ketones Negative Negative Urine Blood Negative Negative /uL Urine Nitrite Negative Negative Urine Bilirubin Negative Negative Urine Urobilinogen Normal Negative mg/dL Urine Leukocyte Esterase Negative Negative /uL Urine RBC None seen 0 - 4 /hpf Urine Microscopic WBC 0-5 /HPF Urine Squamous Epithelial Cells Few <5 /hpf Urine Bacteria None seen None Seen /hpf Urine Glucose Normal Normal mg/dL CXR IMPRESSION: 1. Mild prominence of the pulmonary vasculature, May suggest a degree of pulmonary vascular congestion in the appropriate clinical setting. 2. Large hiatal hernia. Problems(with codes): (1) Diverticulosis (2) Large hiatal hernia (3) Microcytic anemia (4) Shortness of breath (5) Generalized weakness Plan/Recommendation Plan I believe the patient's microcytic anemia is related to her large hiatal hernia which leads to microscopic blood loss She was advised to discontinue her aspirin NSAIDs and maintain herself on PPI and iron pills Patient will be given some IV iron Awaiting stool for occult blood Iron profile vitamin B12 serum folate reticulocyte count Supportive care for now I will review her recent EGD and colon reports Patient was given my contact information to follow up in my office as an outpatient Once again thank you for allowing me to participate in the care of this patient Plan discussed with: Patient, Daughter CIELO TOBIAS MD Nov 28, 2024 20:27
--- NOTE | 2024-11-28 21:34 | DVHPN2 ---
Subjective The patient seems him at bedside. Status post blood transfusions. No complaint today. Reviewed: Care Plan, H&P, Labs, Medications, Previous Orders, Radiology Changes from previous H/P or p: No Changes Eyes: No Pain, No Vision change, No Conjunctivae inflammation, No Eyelid inflammation, No Other, No Redness ENT: No Ear pain, No Ear discharge, No Nose pain, No Nose discharge, No Nose congestion, No Mouth pain, No Mouth swelling, No Throat pain, No Throat swelling, No Other Cardiovascular: No Chest Pain, No Palpitations, No Orthopnea, No Paroxysmal Noc. Dyspnea, No Edema, No Lt Headedness, No Other Respiratory: No Cough, No Dry; Shortness of breath, SOB with excertion; No Wheezing, No Hemoptysis, No Pleuritic Pain, No Sputum; Other (SOB at rest) Gastrointestinal: No Nausea, No Vomiting, No Abdominal Pain, No Diarrhea, No Constipation, No Melena, No Hematochezia, No Other Genitourinary: No Dysuria, No Frequency, No Incontinence, No Hematuria, No Retention, No Other Musculoskeletal: No other, No neck pain, No shoulder pain, No arm pain, No back pain, No hand pain, No leg pain, No foot pain Skin: No Rash, No Lesions, No Jaundice, No Bruising, No Other Objective Vitals Vital Signs Date Time Temp Pulse Resp B/P (MAP) Pulse Ox O2 Delivery O2 Flow Rate FiO2 11/28/24 21:00 98.0 90 19 112/65 (81) 100 98.0 11/28/24 08:00 Room Air* 0 21 Intake/Output Intake and Output 11/28/24 07:00 Intake Total 200 ml Output Total 0 ml Balance 200 ml Intake Oral 200 ml Output Urine Total 0 ml General Appearance: Alert, Oriented X3, Cooperative, No acute distress HEENT: Atraumatic, PERRLA, EOMI, Mucous membr. moist/pink Neck: Supple Lungs: Clear to auscultation, Normal air movement Cardiovascular: Regular rate, Normal S1, Normal S2, No murmurs, Gallops, Rubs Abdomen: Normal bowel sounds, Soft, No tenderness Neuro: Cranial nerves 3-12 NL Psych/Mental Status: Mental status NL Medications Current Medications Medications Dose Ordered Sig/Shiv Route Start Time Stop Time Status Last Admin Dose Admin Albuterol 2.5 mg Q4HPRN PRN NEB 2/7/25 21:00 Ipratropium [place] 0.5 mg Q4HPRN PRN NEB 11/26/24 21:00 Sodium Chloride 1,000 ml @ 60 mls/hr [id number] IV 11/26/24 21:00 11/28/24 00:36 60 MLS/HR Acetaminophen/ Hydrocodone Bitart 1 tab Q4HP PRN PO 11/26/24 21:00 11/28/24 15:55 1 TAB Ondansetron HCl 4 mg Q4HP PRN IV 11/26/24 21:00 11/27/24 02:27 4 MG Docusate Sodium 100 mg BIDPRN PRN PO 11/26/24 21:00 Acetaminophen 650 mg Q6HP PRN PO 11/26/24 21:00 11/27/24 20:29 650 MG Nitroglycerin 0.4 mg Q5MINP PRN SL 11/26/24 23:30 Morphine Sulfate 2 mg Q30M PRN IV 11/26/24 23:30 Pantoprazole Sodium 40 mg BID PO 11/28/24 22:00 Iron Sucrose 110 ml @ 110 mls/hr DAILY@1200 IV 11/29/24 12:00 12/03/24 12:59 Sucralfate 1 gm BID@0600,2200 PO 11/28/24 22:00 Laboratory Results Laboratory Tests 11/27/24 07:19 11/28/24 07:48 Urinalysis Test 11/26/24 15:19 Urine Color Light-yellow (Yellow) Urine Clarity Clear (Clear) Urine pH 7.0 (5.0-9.0) Urine Specific [place] 1.016 (1.001-1.035) Urine Protein Negative (Negative) Urine Ketones Negative (Negative) Urine Blood Negative /uL (Negative) Urine Nitrite Negative (Negative) Urine Bilirubin Negative (Negative) Urine Urobilinogen Normal mg/dL (Negative) Urine Leukocyte Esterase Negative /uL (Negative) Urine RBC None seen /hpf (0 - 4) Urine Microscopic WBC /HPF (0-5) Urine Squamous Epithelial Cells Few /hpf (<5) Urine Bacteria None seen /hpf (None Seen) Urine Glucose Normal mg/dL (Normal) Labs and/or images reviewed: Labs reviewed by me Assessment/Plan Assessment/Plan Anemia of unknown etiology Elevated D-dimer Shortness of breath Generalized weakness Continuing current management. Transfuse as needed when hemoglobin less than seven Waiting for heme/onc to see the patient This medical document was created using an electronic medical record system with [employer] direct computerized dictation system. Although this document has been carefully reviewed, there may still be some phonetic and typographical errors. These areas are purely typographical due to imperfections of the software programs, and do not reflect any compromise in the patient's medical care. Plan discussed with: Patient My Orders Orders - AMANDA POWERS MD Procedure Category Date Status Time * Gi Dvh Driver Education Road Instructor CONS 11/28/24 Transmitted 13:39 Stool Occult Blood LAB 11/28/24 Logged 13:39 Date of Service: Nov 27, 2024 Billing Provider: AMANDA POWERS MD Common Visit Codes: [id number] INP/OBS CARE(HIGH) AMANDA POWERS MD Nov 28, 2024 21:34
[2024-11-28] MEDS: SUCRALFATE 1 GM/10 ML ORAL SUSP PO SCH (21:43)
--- NOTE | 2024-11-28 21:43 | DVHPN2 ---
Subjective The patient seen and examined at bedside. No complaint today. Reviewed: Care Plan, H&P, Labs, Medications, Previous Orders, Radiology Changes from previous H/P or p: No Changes Eyes: No Pain, No Vision change, No Conjunctivae inflammation, No Eyelid inflammation, No Other, No Redness ENT: No Ear pain, No Ear discharge, No Nose pain, No Nose discharge, No Nose congestion, No Mouth pain, No Mouth swelling, No Throat pain, No Throat swelling, No Other Cardiovascular: No Chest Pain, No Palpitations, No Orthopnea, No Paroxysmal Noc. Dyspnea, No Edema, No Lt Headedness, No Other Respiratory: No Cough, No Dry; Shortness of breath, SOB with excertion; No Wheezing, No Hemoptysis, No Pleuritic Pain, No Sputum; Other (SOB at rest) Gastrointestinal: No Nausea, No Vomiting, No Abdominal Pain, No Diarrhea, No Constipation, No Melena, No Hematochezia, No Other Genitourinary: No Dysuria, No Frequency, No Incontinence, No Hematuria, No Retention, No Other Musculoskeletal: No other, No neck pain, No shoulder pain, No arm pain, No back pain, No hand pain, No leg pain, No foot pain Skin: No Rash, No Lesions, No Jaundice, No Bruising, No Other Objective Vitals Vital Signs Date Time Temp Pulse Resp B/P (MAP) Pulse Ox O2 Delivery O2 Flow Rate FiO2 11/28/24 21:00 98.0 90 19 112/65 (81) 100 98.0 11/28/24 08:00 Room Air* 0 21 Intake/Output Intake and Output 11/28/24 07:00 Intake Total 200 ml Output Total 0 ml Balance 200 ml Intake Oral 200 ml Output Urine Total 0 ml General Appearance: Alert, Oriented X3, Cooperative, No acute distress HEENT: Atraumatic, PERRLA, EOMI, Mucous membr. moist/pink Neck: Supple Lungs: Clear to auscultation, Normal air movement Cardiovascular: Regular rate, Normal S1, Normal S2, No murmurs, Gallops, Rubs Abdomen: Normal bowel sounds, Soft, No tenderness Neuro: Cranial nerves 3-12 NL Psych/Mental Status: Mental status NL Medications Current Medications Medications Dose Ordered Sig/Shiv Route Start Time Stop Time Status Last Admin Dose Admin Albuterol 2.5 mg Q4HPRN PRN NEB 11/26/24 21:00 Ipratropium [place] 0.5 mg Q4HPRN PRN NEB 11/26/24 21:00 Sodium Chloride 1,000 ml @ 60 mls/hr [id number] IV 11/26/24 21:00 11/28/24 00:36 60 MLS/HR Acetaminophen/ Hydrocodone Bitart 1 tab Q4HP PRN PO 11/26/24 21:00 11/28/24 15:55 1 TAB Ondansetron HCl 4 mg Q4HP PRN IV 11/26/24 21:00 11/27/24 02:27 4 MG Docusate Sodium 100 mg BIDPRN PRN PO 11/26/24 21:00 Acetaminophen 650 mg Q6HP PRN PO 11/26/24 21:00 11/27/24 20:29 650 MG Nitroglycerin 0.4 mg Q5MINP PRN SL 11/26/24 23:30 Morphine Sulfate 2 mg Q30M PRN IV 11/26/24 23:30 Pantoprazole Sodium 40 mg BID PO 11/28/24 22:00 Iron Sucrose 110 ml @ 110 mls/hr DAILY@1200 IV 11/29/24 12:00 12/03/24 12:59 Sucralfate 1 gm BID@0600,2200 PO 11/28/24 22:00 Laboratory Results Laboratory Tests 11/27/24 07:19 11/28/24 07:48 Urinalysis Test 11/26/24 15:19 Urine Color Light-yellow (Yellow) Urine Clarity Clear (Clear) Urine pH 7.0 (5.0-9.0) Urine Specific [place] 1.016 (1.001-1.035) Urine Protein Negative (Negative) Urine Ketones Negative (Negative) Urine Blood Negative /uL (Negative) Urine Nitrite Negative (Negative) Urine Bilirubin Negative (Negative) Urine Urobilinogen Normal mg/dL (Negative) Urine Leukocyte Esterase Negative /uL (Negative) Urine RBC None seen /hpf (0 - 4) Urine Microscopic WBC /HPF (0-5) Urine Squamous Epithelial Cells Few /hpf (<5) Urine Bacteria None seen /hpf (None Seen) Urine Glucose Normal mg/dL (Normal) Labs and/or images reviewed: Labs reviewed by me Assessment/Plan Assessment/Plan Anemia of unknown etiology Elevated D-dimer Shortness of breath Generalized weakness History of peptic ulcer disease Hiatal hernia Continuing current management. Transfuse as needed for hemoglobin less than seven. Waiting for internal grinder tender to see the patient. We will check occult blood of stool. GI consulted This medical document was created using an electronic medical record system with [employer] direct computerized dictation system. Although this document has been carefully reviewed, there may still be some phonetic and typographical errors. These areas are purely typographical due to imperfections of the software programs, and do not reflect any compromise in the patient's medical care. Plan discussed with: Patient My Orders Orders - AMANDA POWERS MD Procedure Category Date Status Time * Gi Dvh Vehicle Sales Professional CONS 11/28/24 Transmitted 13:39 Stool Occult Blood LAB 11/28/24 Logged 13:39 Date of Service: Nov 28, 2024 Billing Provider: AMANDA POWERS MD Common Visit Codes: [id number] INP/OBS CARE(HIGH) AMANDA POWERS MD Nov 28, 2024 21:43
[2024-11-29] VITALS (10 sets, daily range): BP systolic 100–128; BP diastolic 55–72; PULSE 75–88; RESP 17–20; TEMP 98–98.3; O2SAT 94–100
[2024-11-29 08:17] LABS: Basophils # (auto) 0.2 10 ^3/uL (0-0.2); Basophils % (auto) 2.4 % (0.0-2.0); Eosinophils # (auto) 0.3 10 ^3/uL (0-0.8); Hemoglobin 8.3 g/dL (12.2-16.2); Monocytes # (auto) 0.8 10 ^3/uL (0-1.3); Monocytes % (auto) 11.9 % (0.0-12.0); Neutrophils # (auto) 3.5 10 ^3/uL (1.6-8.6); Nucleated Red Blood Cells % 0.3 %; White Blood Cell 6.6 10^3/uL (4.4-10.8)
[2024-11-29 08:19] LABS: Eosinophils % (auto) 4.8 % (0.0-7.0); Hematocrit 28.4 % (36.0-46.0); Lymphocytes # (auto) 1.8 10 ^3/uL (0.4-5.4); Lymphocytes % (auto) 27.6 % (10.0-50.0); Mean Corpuscular Hemoglobin 21.4 pg (28.0-32.0); Mean Corpuscular Hgb Conc. 29.3 g/dL (32.0-36.0); Mean Corpuscular Volume 73.2 fL (80.0-100.0); Neutrophils % (auto) 53.3 % (37.0-80.0); Platelet Count (auto) 446 10^3/uL (140-450); Red Blood Cells 3.88 10^6/uL (4.0-5.20)
[2024-11-29 08:22] LABS: Potassium 4.3 mmol/L (3.5-5.1); Sodium 139 mmol/L (136-145)
[2024-11-29 08:23] LABS: Anion Gap 8 (5-15); Carbon Dioxide 24 mmol/L (20-31)
[2024-11-29 08:24] LABS: Calcium 9.3 mg/dL (8.7-10.4)
[2024-11-29 08:28] LABS: BUN/Creatinine Ratio 10.8 (10.0-20.0); Glucose 99 mg/dL (74-106)
[2024-11-29 08:40] LABS: Blood Urea Nitrogen 9 mg/dL (9-23); Chloride 107 mmol/L (98-107)
[2024-11-29] MEDS: IRON SUCROSE COMPLEX 110 ML IV SCH (11:04)
--- NOTE | 2024-11-29 11:25 | DVHPN2 ---
Subjective The patient seen and examined at bedside. No complaint today. Reviewed: Care Plan, H&P, Labs, Medications, Previous Orders, Radiology Changes from previous H/P or p: No Changes Eyes: No Pain, No Vision change, No Conjunctivae inflammation, No Eyelid inflammation, No Other, No Redness ENT: No Ear pain, No Ear discharge, No Nose pain, No Nose discharge, No Nose congestion, No Mouth pain, No Mouth swelling, No Throat pain, No Throat swelling, No Other Cardiovascular: No Chest Pain, No Palpitations, No Orthopnea, No Paroxysmal Noc. Dyspnea, No Edema, No Lt Headedness, No Other Respiratory: Shortness of breath, SOB with excertion, Other Gastrointestinal: No Nausea, No Vomiting, No Abdominal Pain, No Diarrhea, No Constipation, No Melena, No Hematochezia, No Other Genitourinary: No Dysuria, No Frequency, No Incontinence, No Hematuria, No Retention, No Other Musculoskeletal: No other, No neck pain, No shoulder pain, No arm pain, No back pain, No hand pain, No leg pain, No foot pain Skin: No Rash, No Lesions, No Jaundice, No Bruising, No Other Objective Vitals Vital Signs Date Time Temp Pulse Resp B/P (MAP) Pulse Ox O2 Delivery O2 Flow Rate FiO2 11/29/24 08:51 98.1 88 18 128/70 (89) 100 98.1 11/29/24 08:00 Room Air* 0 21 Intake/Output Intake and Output 11/29/24 07:00 Intake Total 3580 ml Balance 3580 ml Intake Oral 1980 ml IV Total 1600 ml # Voids 12 # Bowel Movements 4 General Appearance: Alert, Oriented X3, Cooperative, No acute distress HEENT: Atraumatic, PERRLA, EOMI, Mucous membr. moist/pink Neck: Supple Lungs: Clear to auscultation, Normal air movement Cardiovascular: Regular rate, Normal S1, Normal S2, No murmurs, Gallops, Rubs Abdomen: Normal bowel sounds, Soft, No tenderness Neuro: Cranial nerves 3-12 NL Psych/Mental Status: Mental status NL Medications Current Medications Medications Dose Ordered Sig/Shiv Route Start Time Stop Time Status Last Admin Dose Admin Albuterol 2.5 mg Q4HPRN PRN NEB 11/26/24 21:00 Ipratropium [place] 0.5 mg Q4HPRN PRN NEB 11/26/24 21:00 Sodium Chloride 1,000 ml @ 60 mls/hr [id number] IV 11/26/24 21:00 11/28/24 00:36 60 MLS/HR Acetaminophen/ Hydrocodone Bitart 1 tab Q4HP PRN PO 11/26/24 21:00 11/28/24 21:37 1 TAB Ondansetron HCl 4 mg Q4HP PRN IV 11/26/24 21:00 11/27/24 02:27 4 MG Docusate Sodium 100 mg BIDPRN PRN PO 11/26/24 21:00 Acetaminophen 650 mg Q6HP PRN PO 11/26/24 21:00 11/27/24 20:29 650 MG Nitroglycerin 0.4 mg Q5MINP PRN SL 11/26/24 23:30 Morphine Sulfate 2 mg Q30M PRN IV 11/26/24 23:30 Pantoprazole Sodium 40 mg BID PO 11/28/24 22:00 11/29/24 09:34 40 MG Iron Sucrose 110 ml @ 110 mls/hr DAILY@1200 IV 11/29/24 12:00 12/03/24 12:59 11/29/24 11:04 110 MLS/HR Sucralfate 1 gm BID@0600,2200 PO 11/28/24 22:00 11/29/24 05:43 1 GM Laboratory Results Laboratory Tests 11/29/24 06:42 Chemistry Test 11/29/24 06:42 Calcium Level 9.3 mg/dL (8.7-10.4) HgA1c, TSH Test 11/29/24 06:42 Thyroid Stimulating Hormone (TSH) 3.47 uIU/mL (0.55-4.78) Urinalysis Test 11/26/24 15:19 Urine Color Light-yellow (Yellow) Urine Clarity Clear (Clear) Urine pH 7.0 (5.0-9.0) Urine Specific [place] 1.016 (1.001-1.035) Urine Protein Negative (Negative) Urine Ketones Negative (Negative) Urine Blood Negative /uL (Negative) Urine Nitrite Negative (Negative) Urine Bilirubin Negative (Negative) Urine Urobilinogen Normal mg/dL (Negative) Urine Leukocyte Esterase Negative /uL (Negative) Urine RBC None seen /hpf (0 - 4) Urine Microscopic WBC /HPF (0-5) Urine Squamous Epithelial Cells Few /hpf (<5) Urine Bacteria None seen /hpf (None Seen) Urine Glucose Normal mg/dL (Normal) Labs and/or images reviewed: Labs reviewed by me Assessment/Plan Assessment/Plan Anemia of unknown etiology Elevated D-dimer Shortness of breath Generalized weakness History of peptic ulcer disease Hiatal hernia Continuing current management. Transfuse as needed for hemoglobin less than seven. Waiting for foundation relations director to see the patient. We will check occult blood of stool. Waiting for GI consulted This medical document was created using an electronic medical record system with [employer] computerized dictation system. Although this document has been carefully reviewed, there may still be some phonetic and typographical errors. These areas are purely typographical due to imperfections of the software programs, and do not reflect any compromise in the patient's medical care. Plan discussed with: Patient My Orders Orders - AMANDA POWERS MD Procedure Category Date Status Time * Gi Dvh Refrigerator Crater CONS 11/28/24 Transmitted 13:39 Stool Occult Blood LAB 11/28/24 Logged 13:39 Date of Service: Nov 29, 2024 Billing Provider: AMANDA POWERS MD Common Visit Codes: [id number] INP/OBS CARE(HIGH) AMANDA POWERS MD Nov 29, 2024 11:25
[2024-11-29 11:35] LABS: % Iron Saturation 3.5 % (15-50)
[2024-11-29 12:06] LABS: Folate (Folic Acid) 22.88 ng/mL (>5.38)
--- NOTE | 2024-11-29 15:34 | DVHPN2 ---
Progress Note Date Seen: Nov 29, 2024 Resident Creating Document: BAIRON PRAJAPATI RESIDENT Medical Necessity Reason Pt with a Central, PICC or Fol: No Subjective Review of Systems Patient was seen and examined on the bedside. She is alert oriented x3. Mentioned improvement of generalized weakness and denied any hematemesis, melena or any blood in stool. Last Bowel movement was 2 days ago. The patient had history of methamphetamine abuse disorder and not taking any drugs for last 14 days. 2 units of PRBC for severe anemia and H&H is now stable 8.3/28.4. Objective vital signs Vital Sign Date Time Temp Pulse Resp B/P (MAP) Pulse Ox O2 Delivery O2 Flow Rate FiO2 11/29/24 13:00 98.2 75 18 114/72 (86) 99 98.2 11/29/24 08:00 Room Air* 0 21 Total Intake and Output 11/28/24 11/28/24 11/29/24 15:00 23:00 07:00 Intake Total 240 ml 1340 ml 2000 ml Balance 240 ml 1340 ml 2000 ml medications Current Medications Medications Dose Ordered Sig/Shiv Route Start Time Stop Time Status Last Admin Dose Admin Albuterol 2.5 mg Q4HPRN PRN NEB 11/26/24 21:00 Ipratropium [place] 0.5 mg Q4HPRN PRN NEB 11/26/24 21:00 Sodium Chloride 1,000 ml @ 60 mls/hr [id number] IV 11/26/24 21:00 11/28/24 00:36 60 MLS/HR Acetaminophen/ Hydrocodone Bitart 1 tab Q4HP PRN PO 11/26/24 21:00 11/29/24 15:08 1 TAB Ondansetron HCl 4 mg Q4HP PRN IV 11/26/24 21:00 11/27/24 02:27 4 MG Docusate Sodium 100 mg BIDPRN PRN PO 11/26/24 21:00 Acetaminophen 650 mg Q6HP PRN PO 11/26/24 21:00 11/27/24 20:29 650 MG Nitroglycerin 0.4 mg Q5MINP PRN SL 11/26/24 23:30 Morphine Sulfate 2 mg Q30M PRN IV 11/26/24 23:30 Pantoprazole Sodium 40 mg BID PO 11/28/24 22:00 11/29/24 09:34 40 MG Iron Sucrose 110 ml @ 110 mls/hr DAILY@1200 IV 11/29/24 12:00 12/03/24 12:59 11/29/24 11:04 110 MLS/HR Sucralfate 1 gm BID@0600,2200 PO 11/28/24 22:00 11/29/24 05:43 1 GM Examination Physical examination: General Appearance: Alert, Oriented X3, Cooperative, No acute distress HEENT: Atraumatic, PERRLA, EOMI, Mucous membrane moist/pink Respiratory: Clear to auscultation, Normal air movement Cardiovascular: Regular rate, Normal S1, Normal S2, No murmurs, no chest wall tenderness Abdominal: Normal bowel sounds, Soft, No tenderness, No hepatospenomegaly, No masses Extremities: No clubbing, No cyanosis, No edema, Normal pulses, No tenderness/swelling Skin: No rashes, No breakdown, No significant lesion Neuro: Normal gait, Normal speech, Strength at 5/5 X4 ext, Normal tone, Sensation intact, grossly intact cranial nerves. Psych/Mental Status: Mental status NL, Mood NL laboratory and microbiology Laboratory Tests 11/29/24 06:42 Test 11/29/24 06:42 Range/Units Serum Glucose 99 74-106 mg/dL Labs and/or images reviewed: Labs reviewed by me, Image(s) reviewed by me Problem List/Assessment/Plan Problem List/Assessment/Plan Assessment: # Diverticulosis # Large hiatal hernia # Microcytic anemia # Shortness of breath # Generalized weakness Plan - Microcytic anemia is likely due to large hiatal hernia which leads to microscopic blood loss . - Iron panel revealed low iron, high TIBC , low saturation and vitamin B12 and folate are normal - Protonix 40 mg p.o. b.i.d. and Carafate 1 g p.o. b.i.d. - Continue IV iron - Awaiting stool for occult blood - Avoid NSAIDs - Supportive care for now - Will review her recent EGD and colonoscopy reports - Follow up with Dr. Gant in outpatient after discharge Plan discussed with Plan discussed with: Patient, Other CC Plasma Assessment Blood Product Administration S: [id number] BAIRON PRAJAPATI RESIDENT Nov 29, 2024 15:34
[2024-11-30] VITALS (10 sets, daily range): BP systolic 100–135; BP diastolic 55–73; PULSE 74–96; RESP 17–20; TEMP 97.7–98.2; O2SAT 95–99
[2024-11-30 08:06] LABS: Eosinophils # (auto) 0.2 10 ^3/uL (0-0.8); Hemoglobin 8.1 g/dL (12.2-16.2)
[2024-11-30 08:08] LABS: Basophils # (auto) 0.2 10 ^3/uL (0-0.2); Basophils % (auto) 2.5 % (0.0-2.0); Eosinophils % (auto) 3.4 % (0.0-7.0); Hematocrit 27.2 % (36.0-46.0); Lymphocytes # (auto) 1.9 10 ^3/uL (0.4-5.4); Lymphocytes % (auto) 31.4 % (10.0-50.0); Mean Corpuscular Hemoglobin 21.4 pg (28.0-32.0); Mean Corpuscular Hgb Conc. 29.6 g/dL (32.0-36.0); Mean Corpuscular Volume 72.3 fL (80.0-100.0); Monocytes # (auto) 0.5 10 ^3/uL (0-1.3); Monocytes % (auto) 8.1 % (0.0-12.0); Neutrophils # (auto) 3.4 10 ^3/uL (1.6-8.6); Neutrophils % (auto) 54.6 % (37.0-80.0); Nucleated Red Blood Cells % 0.5 %; Platelet Count (auto) 471 10^3/uL (140-450); Red Blood Cells 3.77 10^6/uL (4.0-5.20); Red Cell Distribution Width 27.9 % (11.8-14.3); White Blood Cell 6.2 10^3/uL (4.4-10.8)
[2024-11-30 08:36] LABS: Anion Gap 8 (5-15); Carbon Dioxide 25 mmol/L (20-31); Chloride 105 mmol/L (98-107); Potassium 4.3 mmol/L (3.5-5.1); Sodium 138 mmol/L (136-145)
[2024-11-30 08:37] LABS: Calcium 9.6 mg/dL (8.7-10.4)
[2024-11-30 08:42] LABS: BUN/Creatinine Ratio 17.6 (10.0-20.0); Blood Urea Nitrogen 13 mg/dL (9-23); Glucose 99 mg/dL (74-106)
[2024-11-30 11:19] LABS: Ovalocytes FEW; Platelet Estimate Increased; Target Cell FEW
[2024-11-30 11:20] LABS: Anisocytosis Moderate; Hypochromia Moderate
--- NOTE | 2024-11-30 17:22 | DVHPN2 ---
Progress Note Date Seen: Nov 30, 2024 Resident Creating Document: BAIRON PRAJAPATI RESIDENT Medical Necessity Reason Pt with a Central, PICC or Fol: No Subjective Review of Systems The patient was seen and examined on the bedside. She is alert oriented x3. No complaint of abdominal pain, hemoptysis, hematemesis, hematochezia or any change in bowel and bladder habit. Scheduled for upper GI endoscopy tomorrow on 10/31/2024. Objective vital signs Vital Sign Date Time Temp Pulse Resp B/P (MAP) Pulse Ox O2 Delivery O2 Flow Rate FiO2 11/30/24 13:00 97.9 86 18 129/73 (91) 98 97.9 11/30/24 08:05 Room Air* 0 21 Total Intake and Output 11/29/24 11/29/24 11/30/24 15:00 23:00 07:00 Intake Total 110 ml 1550 ml 1000 ml Balance 110 ml 1550 ml 1000 ml medications Current Medications Medications Dose Ordered Sig/Shiv Route Start Time Stop Time Status Last Admin Dose Admin Albuterol 2.5 mg Q4HPRN PRN NEB 11/26/24 21:00 Ipratropium [place] 0.5 mg Q4HPRN PRN NEB 11/26/24 21:00 Sodium Chloride 1,000 ml @ 60 mls/hr [id number] IV 11/26/24 21:00 11/30/24 09:30 60 MLS/HR Acetaminophen/ Hydrocodone Bitart 1 tab Q4HP PRN PO 11/26/24 21:00 11/30/24 12:59 1 TAB Ondansetron HCl 4 mg Q4HP PRN IV 11/26/24 21:00 11/27/24 02:27 4 MG Docusate Sodium 100 mg BIDPRN PRN PO 11/26/24 21:00 Acetaminophen 650 mg Q6HP PRN PO 11/26/24 21:00 11/27/24 20:29 650 MG Nitroglycerin 0.4 mg Q5MINP PRN SL 11/26/24 23:30 Morphine Sulfate 2 mg Q30M PRN IV 11/26/24 23:30 Pantoprazole Sodium 40 mg BID PO 11/28/24 22:00 11/30/24 09:30 40 MG Iron Sucrose 110 ml @ 110 mls/hr DAILY@1200 IV 11/29/24 12:00 12/03/24 12:59 11/30/24 11:44 110 MLS/HR Sucralfate 1 gm BID@0600,2200 PO 11/28/24 22:00 11/30/24 05:27 1 GM Examination Physical examination: General Appearance: Alert, Oriented X3, Cooperative, No acute distress HEENT: Atraumatic, PERRLA, EOMI, Mucous membrane moist/pink Respiratory: Clear to auscultation, Normal air movement Cardiovascular: Regular rate, Normal S1, Normal S2, No murmurs, no chest wall tenderness Abdominal: Normal bowel sounds, Soft, No tenderness, No hepatospenomegaly, No masses Extremities: No clubbing, No cyanosis, No edema, Normal pulses, No tenderness/swelling Skin: No rashes, No breakdown, No significant lesion Neuro: Normal gait, Normal speech, Strength at 5/5 X4 ext, Normal tone, Sensation intact, Cranial nerves 3-12 NL, Reflexes 2+ Psych/Mental Status: Mental status NL, Mood NL laboratory and microbiology Laboratory Tests 11/30/24 07:21 Test 11/30/24 07:21 Range/Units Serum Glucose 99 74-106 mg/dL Labs and/or images reviewed: Labs reviewed by me, Image(s) reviewed by me Problem List/Assessment/Plan Problem List/Assessment/Plan Assessment: # Diverticulosis # Large hiatal hernia # Microcytic anemia # Shortness of breath # Generalized weakness Plan - Upper GI endoscopy tomorrow on 0 10/31/24 - NPO after midnight - Ordered CT abdomen pelvis without contrast to rule out acute intra-abdominal pathology. - Microcytic anemia is likely due to large hiatal hernia which leads to microscopic blood loss . - Iron panel revealed low iron, high TIBC , low saturation and vitamin B12 and folate are normal - Protonix 40 mg p.o. b.i.d. and Carafate 1 g p.o. b.i.d. - Continue IV iron - Stool occult blood negative - Avoid NSAIDs - Follow up with Dr. Gant in outpatient after discharge Plan discussed with Plan discussed with: Patient, Other My Orders My Orders Orders - BAIRON PRAJAPATI RESIDENT Procedure Category Date Status Time Ct Ab Pel Wo Con-No CT 11/30/24 Logged Oral Or Iv 17:16 CC Plasma Assessment Blood Product Administration S: [id number] BAIRON PRAJAPATI RESIDENT Nov 30, 2024 17:22
--- NOTE | 2024-11-30 17:59 | DVH ---
Exam: CT CT AB PEL WO CON-NO ORAL OR IV History: Severe anemia Comparison Study: None TECHNIQUE: A digital alpine guide image was obtained. During the uneventful, intravenous administration of c ontrast material, multislice data acquisition was obtained through the abdomen and pelvis. The data s et was subsequently reconstructed into axial images. Images reviewed on a wrist examination is an exa mination of axial and multiplanar reformations using a variety of window levels and settings. RADIATION DOSE: DLP 775.92 mGy.cm; CTDI vol 15.78 mGy. Findings: Lungs: The lung bases are clear. Heart: No cardiomegaly or pericardial effusion. Liver: Unremarkable. Gallbladder: Cholecystectomy. Spleen: Unremarkable Pancreas: Unremarkable Adrenals: Unremarkable Kidneys: Unremarkable GI tract: Moderate to large hiatal hernia. Diverticulosis without evidence of acute diverticulitis. I ncreased attenuation in the 4th portion of the duodenum/proximal jejunum. : 3.2 x 3.0 cm right adnexal cystic lesion with central calcification. Vasculature: Unremarkable Lymphadenopathy: Absent Peritoneum: No ascites Musculoskeletal: Mild multilevel degenerative changes of the thoracolumbar spine. Soft tissues: Unremarkable Impression: 1. No acute abdominopelvic abnormalities. 2. Increased attenuation in the 4th portion of the duodenum/proximal jejunum. Cannot exclude a gastro intestinal hemorrhage. Recommend a nuclear medicine GI bleeding scan for further evaluation. 3. Diverticulosis without evidence of acute diverticulitis. 4. 3.2 x 3.0 cm right adnexal cystic lesion with central calcification. Recommend a pelvic ultrasound for further evaluation.
[2024-12-01] VITALS (12 sets, daily range): BP systolic 114–143; BP diastolic 66–79; PULSE 64–90; RESP 12–18; TEMP 97.7–98.1; O2SAT 93–100
[2024-12-01 08:46] LABS: INR 0.97 (0.9-1.15); Prothrombin Time 10.3 sec (9.3-11.8)
[2024-12-01] MEDS ORDERED: SODIUM CHLORIDE LOCK 10 ML ONE (09:29)
--- NOTE | 2024-12-01 12:22 | DVHPN2 ---
Reviewed: Care Plan, H&P, Labs, Medications, Previous Orders, Radiology Changes from previous H/P or p: No Changes General: Per HPI Eyes: No Pain, No Vision change, No Conjunctivae inflammation, No Eyelid inflammation, No Other, No Redness ENT: No Ear pain, No Ear discharge, No Nose pain, No Nose discharge, No Nose congestion, No Mouth pain, No Mouth swelling, No Throat pain, No Throat swelling, No Other Cardiovascular: No Chest Pain, No Palpitations, No Orthopnea, No Paroxysmal Noc. Dyspnea, No Edema, No Lt Headedness, No Other Respiratory: Shortness of breath, SOB with excertion, Other Gastrointestinal: No Nausea, No Vomiting, No Abdominal Pain, No Diarrhea, No Constipation, No Melena, No Hematochezia, No Other Genitourinary: No Dysuria, No Frequency, No Incontinence, No Hematuria, No Retention, No Other Musculoskeletal: No other, No neck pain, No shoulder pain, No arm pain, No back pain, No hand pain, No leg pain, No foot pain Skin: No Rash, No Lesions, No Jaundice, No Bruising, No Other Objective Vitals Vital Signs Date Time Temp Pulse Resp B/P (MAP) Pulse Ox O2 Delivery O2 Flow Rate FiO2 12/01/24 09:00 97.8 76 16 116/66 (83) 96 97.8 12/01/24 05:36 Room Air* 0 21 Intake/Output Intake and Output 12/01/24 07:00 Intake Total 1410 ml Balance 1410 ml Intake Oral 820 ml IV Total 590 ml # Voids 12 General Appearance: Alert, Oriented X3, Cooperative, No acute distress HEENT: Atraumatic, PERRLA, EOMI, Mucous membr. moist/pink Neck: Supple Lungs: Clear to auscultation, Normal air movement Cardiovascular: Regular rate, Normal S1, Normal S2, No murmurs, Gallops, Rubs Abdomen: Normal bowel sounds, Soft, No tenderness Neuro: Cranial nerves 3-12 NL Psych/Mental Status: Mental status NL Medications Current Medications Medications Dose Ordered Sig/Shiv Route Start Time Stop Time Status Last Admin Dose Admin Albuterol 2.5 mg Q4HPRN PRN NEB 11/26/24 21:00 Cancel Ipratropium [place] 0.5 mg Q4HPRN PRN NEB 11/26/24 21:00 Cancel Sodium Chloride 1,000 ml @ 60 mls/hr [id number] IV 11/26/24 21:00 12/01/24 05:12 60 MLS/HR Acetaminophen/ Hydrocodone Bitart 1 tab Q4HP PRN PO 11/26/24 21:00 11/30/24 21:27 1 TAB Ondansetron HCl 4 mg Q4HP PRN IV 11/26/24 21:00 11/27/24 02:27 4 MG Docusate Sodium 100 mg BIDPRN PRN PO 11/26/24 21:00 Acetaminophen 650 mg Q6HP PRN PO 11/26/24 21:00 11/27/24 20:29 650 MG Nitroglycerin 0.4 mg Q5MINP PRN SL 11/26/24 23:30 Morphine Sulfate 2 mg Q30M PRN IV 11/26/24 23:30 Pantoprazole Sodium 40 mg BID PO 11/28/24 22:00 11/30/24 21:27 40 MG Iron Sucrose 110 ml @ 110 mls/hr DAILY@1200 IV 11/29/24 12:00 12/03/24 12:59 12/01/24 11:28 110 MLS/HR Sucralfate 1 gm BID@0600,2200 PO 11/28/24 22:00 11/30/24 21:27 1 GM Laboratory Results Laboratory Tests 11/30/24 07:21 Coagulation Test 12/01/24 07:53 Prothrombin Time 10.3 sec (9.3-11.8) Prothrombin Time INR 0.97 (0.9-1.15) Activated Partial Thromboplast Time 26.0 SEC (24.5-34.5) Urinalysis Test 11/26/24 15:19 Urine Color Light-yellow (Yellow) Urine Clarity Clear (Clear) Urine pH 7.0 (5.0-9.0) Urine Specific [place] 1.016 (1.001-1.035) Urine Protein Negative (Negative) Urine Ketones Negative (Negative) Urine Blood Negative /uL (Negative) Urine Nitrite Negative (Negative) Urine Bilirubin Negative (Negative) Urine Urobilinogen Normal mg/dL (Negative) Urine Leukocyte Esterase Negative /uL (Negative) Urine RBC None seen /hpf (0 - 4) Urine Microscopic WBC /HPF (0-5) Urine Squamous Epithelial Cells Few /hpf (<5) Urine Bacteria None seen /hpf (None Seen) Urine Glucose Normal mg/dL (Normal) Labs and/or images reviewed: Labs reviewed by me, Image(s) reviewed by me Assessment/Plan Assessment/Plan Anemia of unknown etiology Elevated D-dimer Shortness of breath Generalized weakness History of peptic ulcer disease Hiatal hernia Continuing current management. Transfuse as needed for hemoglobin less than seven. Waiting for truck operator to see the patient. We will check occult blood of stool. GI to carry out scoping today Plan discussed with: Patient Date of Service: Dec 01, 2024 Billing Provider: GIULIA FOWLER DO Common Visit Codes: [id number] INP/OBS CARE(HIGH) GIULIA FOWLER DO Dec 01, 2024 12:22
--- NOTE | 2024-12-01 12:22 | DVHPN2 ---
Reviewed: Care Plan, H&P, Labs, Medications, Previous Orders, Radiology Changes from previous H/P or p: No Changes General: Per HPI Eyes: No Pain, No Vision change, No Conjunctivae inflammation, No Eyelid inflammation, No Other, No Redness ENT: No Ear pain, No Ear discharge, No Nose pain, No Nose discharge, No Nose congestion, No Mouth pain, No Mouth swelling, No Throat pain, No Throat swelling, No Other Cardiovascular: No Chest Pain, No Palpitations, No Orthopnea, No Paroxysmal Noc. Dyspnea, No Edema, No Lt Headedness, No Other Respiratory: Shortness of breath, SOB with excertion, Other Gastrointestinal: No Nausea, No Vomiting, No Abdominal Pain, No Diarrhea, No Constipation, No Melena, No Hematochezia, No Other Genitourinary: No Dysuria, No Frequency, No Incontinence, No Hematuria, No Retention, No Other Musculoskeletal: No other, No neck pain, No shoulder pain, No arm pain, No back pain, No hand pain, No leg pain, No foot pain Skin: No Rash, No Lesions, No Jaundice, No Bruising, No Other Objective Vitals Vital Signs Date Time Temp Pulse Resp B/P (MAP) Pulse Ox O2 Delivery O2 Flow Rate FiO2 12/01/24 09:00 97.8 76 16 116/66 (83) 96 97.8 12/01/24 05:36 Room Air* 0 21 Intake/Output Intake and Output 12/01/24 07:00 Intake Total 1410 ml Balance 1410 ml Intake Oral 820 ml IV Total 590 ml # Voids 12 General Appearance: Alert, Oriented X3, Cooperative, No acute distress HEENT: Atraumatic, PERRLA, EOMI, Mucous membr. moist/pink Neck: Supple Lungs: Clear to auscultation, Normal air movement Cardiovascular: Regular rate, Normal S1, Normal S2, No murmurs, Gallops, Rubs Abdomen: Normal bowel sounds, Soft, No tenderness Neuro: Cranial nerves 3-12 NL Psych/Mental Status: Mental status NL Medications Current Medications Medications Dose Ordered Sig/Shiv Route Start Time Stop Time Status Last Admin Dose Admin Albuterol 2.5 mg Q4HPRN PRN NEB 11/26/24 21:00 Cancel Ipratropium [place] 0.5 mg Q4HPRN PRN NEB 11/26/24 21:00 Cancel Sodium Chloride 1,000 ml @ 60 mls/hr [id number] IV 11/26/24 21:00 12/01/24 05:12 60 MLS/HR Acetaminophen/ Hydrocodone Bitart 1 tab Q4HP PRN PO 11/26/24 21:00 11/30/24 21:27 1 TAB Ondansetron HCl 4 mg Q4HP PRN IV 11/26/24 21:00 11/27/24 02:27 4 MG Docusate Sodium 100 mg BIDPRN PRN PO 11/26/24 21:00 Acetaminophen 650 mg Q6HP PRN PO 11/26/24 21:00 11/27/24 20:29 650 MG Nitroglycerin 0.4 mg Q5MINP PRN SL 11/26/24 23:30 Morphine Sulfate 2 mg Q30M PRN IV 11/26/24 23:30 Pantoprazole Sodium 40 mg BID PO 11/28/24 22:00 11/30/24 21:27 40 MG Iron Sucrose 110 ml @ 110 mls/hr DAILY@1200 IV 11/29/24 12:00 12/03/24 12:59 12/01/24 11:28 110 MLS/HR Sucralfate 1 gm BID@0600,2200 PO 11/28/24 22:00 11/30/24 21:27 1 GM Laboratory Results Laboratory Tests 11/30/24 07:21 Coagulation Test 12/01/24 07:53 Prothrombin Time 10.3 sec (9.3-11.8) Prothrombin Time INR 0.97 (0.9-1.15) Activated Partial Thromboplast Time 26.0 SEC (24.5-34.5) Urinalysis Test 11/26/24 15:19 Urine Color Light-yellow (Yellow) Urine Clarity Clear (Clear) Urine pH 7.0 (5.0-9.0) Urine Specific [place] 1.016 (1.001-1.035) Urine Protein Negative (Negative) Urine Ketones Negative (Negative) Urine Blood Negative /uL (Negative) Urine Nitrite Negative (Negative) Urine Bilirubin Negative (Negative) Urine Urobilinogen Normal mg/dL (Negative) Urine Leukocyte Esterase Negative /uL (Negative) Urine RBC None seen /hpf (0 - 4) Urine Microscopic WBC /HPF (0-5) Urine Squamous Epithelial Cells Few /hpf (<5) Urine Bacteria None seen /hpf (None Seen) Urine Glucose Normal mg/dL (Normal) Labs and/or images reviewed: Labs reviewed by me, Image(s) reviewed by me Assessment/Plan Assessment/Plan Anemia of unknown etiology Elevated D-dimer Shortness of breath Generalized weakness History of peptic ulcer disease Hiatal hernia Continuing current management. Transfuse as needed for hemoglobin less than seven. Waiting for silver recovery operator to see the patient. We will check occult blood of stool. Waiting for GI consulted pending procedure by GI Plan discussed with: Patient Date of Service: Nov 30, 2024 Billing Provider: GIULIA FOWLER DO Common Visit Codes: [id number] INP/OBS CARE(HIGH) GIULIA FOWLER DO Dec 01, 2024 12:22
[2024-12-01] MEDS: LIDOCAINE VISCOUS 2% 15ML UD ONE (13:41)
[2024-12-01] MEDS: MIDAZOLAM HCL 5 MG/ML-1ML VIAL ONE (13:43)
[2024-12-01] MEDS: diphenhdrAMINE HCL 50 MG/1 ML VL ONE (13:43)
[2024-12-01] MEDS: fentaNYL CITRATE 100 MCG/2 ML VL ONE (13:43)
--- NOTE | 2024-12-01 14:08 | DVHOP2 ---
Operative Report DATE OF OPERATION: 12/01/24 PROCEDURE: Upper Endoscopy with biopsy. PREOPERATIVE INDICATION: The patient is a 59 -year-old female undergoing endoscopy for anemia POSTOPERATIVE DIAGNOSES: 1. Patient had a 6-7 cm sliding-type hiatal hernia with Hernan's linear erosions at the diaphragmatic impingement 2. Jemj-au-ywhqlevv antral gastritis with pre-pyloric antral gastric erosions and tiny ulcers PROCEDURE PERFORMED BY: Cielo Gant GI NURSE: [place] SCOPE: Olympus videoendoscope. ASA CLASS: 2. PREOPERATIVE MEDICATIONS: Versed 3 mg, Fentanyl 75 mcg, Benadryl 50 mg I administered moderate sedation throughout this _8_ minutes procedure. An independent trained observer pushed medications at my direction, and monitored the patient's level of consciousness and physiological status throughout. PROCEDURE IN DETAIL: After obtaining an informed consent, the patient was placed on left lateral decubitus position. The patient was then sedated with the above medications. A bite block was placed between her teeth. The endoscope was then passed through the oropharynx, into the esophagus, and through the stomach and pylorus up to the second and third part of the duodenum. The endoscope was then withdrawn. The 2nd and 3rd part of the duodenum and the duodenal bulb were normal. D uodenal biopsies were obtained The pre-pyloric area antrum and body showed fyiy-ck-corzychi gastritis and there were multiple tiny pre-pyloric antral gastric ulcers and erosions. On retroflexion the fundus cardia and angularis were normal. A hiatal hernia was noted. There was no fresh or old blood in the stomach. The endoscope was then withdrawn into the distal esophagus were she had a 6-7 cm sliding-type hiatal hernia. No significant esophagitis at the GE junction There were cameras linear erosions of the diaphragmatic impingement. The remaining distal and proximal esophagus and oropharynx were unremarkable The patient tolerated the procedure well without difficulty. COMPLICATIONS : None SPECIMENS: Duodenal biopsies Gastric biopsies DISPOSITION: Transfer back to the floor Stable PLAN: 1. Await for biopsy result 2. Will place pt on Protonix 40 mg bid 3. Carafate 1 g p.o. twice a day 4. DC aspirin NSAIDs smoking alcohol 5. Maintained on iron pills 6. Patient is source of anemia is likely related to her large hiatal hernia with Hernan's erosions 7. Resume GI soft diet advance as tolerated 8. Outpatient follow up with GI Services as needed CIELO GANT MD Dec 01, 2024 14:08
[2024-12-02] VITALS (7 sets, daily range): BP systolic 102–111; BP diastolic 58–76; PULSE 73–94; RESP 16–17; TEMP 97.8–98.3; O2SAT 94–99
--- NOTE | 2024-12-02 12:28 | DVHPN2 ---
Progress Note Date Seen: Dec 02, 2024 Resident Creating Document: BAIRON PRAJAPATI RESIDENT Medical Necessity Reason Pt with a Central, PICC or Fol: No Subjective Review of Systems The patient was seen and examined on the bedside. She is alert oriented x3. The patient underwent EGD and the procedure was uneventful. H/H is stable and patient is stable for discharge from GI standpoint. Objective vital signs Vital Sign Date Time Temp Pulse Resp B/P (MAP) Pulse Ox O2 Delivery O2 Flow Rate FiO2 12/02/24 08:05 80 17 95 Room Air* 0 21 12/02/24 05:00 98.2 111/76 (88) 98.2 Total Intake and Output 12/01/24 12/01/24 12/02/24 15:00 23:00 07:00 Intake Total 110 ml 0 ml Balance 110 ml 0 ml medications Current Medications Medications Dose Ordered Sig/Shiv Route Start Time Stop Time Status Last Admin Dose Admin Albuterol 2.5 mg Q4HPRN PRN NEB 11/26/24 21:00 Cancel Ipratropium [place] 0.5 mg Q4HPRN PRN NEB 11/26/24 21:00 Cancel Sodium Chloride 1,000 ml @ 60 mls/hr [id number] IV 11/26/24 21:00 12/01/24 05:12 60 MLS/HR Acetaminophen/ Hydrocodone Bitart 1 tab Q4HP PRN PO 11/26/24 21:00 12/01/24 21:26 1 TAB Ondansetron HCl 4 mg Q4HP PRN IV 11/26/24 21:00 11/27/24 02:27 4 MG Docusate Sodium 100 mg BIDPRN PRN PO 11/26/24 21:00 Acetaminophen 650 mg Q6HP PRN PO 11/26/24 21:00 11/27/24 20:29 650 MG Nitroglycerin 0.4 mg Q5MINP PRN SL 11/26/24 23:30 Morphine Sulfate 2 mg Q30M PRN IV 11/26/24 23:30 Pantoprazole Sodium 40 mg BID PO 11/28/24 22:00 12/02/24 09:37 40 MG Iron Sucrose 110 ml @ 110 mls/hr DAILY@1200 IV 11/29/24 12:00 12/03/24 12:59 12/01/24 11:28 110 MLS/HR Sucralfate 1 gm BID@0600,2200 PO 11/28/24 22:00 12/02/24 06:21 1 GM Examination Physical examination: General Appearance: Alert, Oriented X3, Cooperative, No acute distress HEENT: Atraumatic, PERRLA, EOMI, Mucous membrane moist/pink Respiratory: Clear to auscultation, Normal air movement Cardiovascular: Regular rate, Normal S1, Normal S2, No murmurs, no chest wall tenderness Abdominal: Normal bowel sounds, Soft, No tenderness, No hepatospenomegaly, No masses Extremities: No clubbing, No cyanosis, No edema, Normal pulses, No tenderness/swelling Skin: No rashes, No breakdown, No significant lesion Neuro: Normal gait, Normal speech, Strength at 5/5 X4 ext, Normal tone, Sensation intact, grossly intact cranial nerves. Psych/Mental Status: Mental status NL, Mood NL laboratory and microbiology Laboratory Tests 11/30/24 07:21 Test 11/30/24 07:21 Range/Units Serum Glucose 99 74-106 mg/dL Labs and/or images reviewed: Labs reviewed by me, Image(s) reviewed by me Problem List/Assessment/Plan Problem List/Assessment/Plan Assessment: # Diverticulosis # Large hiatal hernia # Microcytic anemia # Shortness of breath # Generalized weakness Plan - Upper GI endoscopy revealed GI now would 67 cm hiatal hernia with Hernan's linear lesion at the diaphragmatic impingement, [id number] antral gastritis with pre-pyloric antral gastric erosion and tiny ulcer - CT abdomen pelvis without contrast demonstrated increased attenuation in the 4th portion of the duodenum/proximal jejunum. Cannot exclude a gastrointestinal hemorrhage. - Microcytic anemia is likely due to large hiatal hernia which leads to microscopic blood loss . - Iron panel revealed low iron, high TIBC , low saturation and vitamin B12 and folate are normal - Protonix 40 mg p.o. b.i.d. and Carafate 1 g p.o. b.i.d. - Oral iron on discharge. - Stool occult blood negative - Avoid NSAIDs - Patient is stable for discharge from GI standpoint - Follow up with Dr. Gant in outpatient for elective colonoscopy after discharge Plan discussed with Plan discussed with: Patient, Other CC Plasma Assessment Blood Product Administration S: [id number] BAIRON PRAJAPATI RESIDENT Dec 02, 2024 12:27
[2024-12-02] MEDS ORDERED: SUCR1SUS26 PO (12:59)
[2024-12-02] MEDS ORDERED: PANT40T PO (12:59)
--- NOTE | 2024-12-02 13:00 | DVHDS2 ---
Discharge Summary Date of Admission Nov 26, 2024 at 23:25 Date of Discharge: Dec 02, 2024 Labs/Diagnostic Data: Laboratory Results Test 12/01/24 07:53 11/30/24 07:21 11/29/24 21:30 11/29/24 06:42 Prothrombin Time 10.3 sec (9.3-11.8) Prothrombin Time INR 0.97 (0.9-1.15) Activated Partial Thromboplast Time 26.0 SEC (24.5-34.5) White Blood Count 6.2 10^3/uL (4.4-10.8) Red Blood Count 3.77 10^6/uL (4.0-5.20) Hemoglobin 8.1 g/dL (12.2-16.2) Hematocrit 27.2 % (36.0-46.0) Mean Corpuscular Volume 72.3 fL (80.0-100.0) Mean Corpuscular Hemoglobin 21.4 pg (28.0-32.0) Mean Corpuscular Hemoglobin Concent 29.6 g/dL (32.0-36.0) Red Cell Distribution Width 27.9 % (11.8-14.3) Platelet Count 471 10^3/uL (140-450) Mean Platelet Volume 7.4 fL (6.9-10.8) Neutrophils (%) (Auto) 54.6 % (37.0-80.0) Lymphocytes (%) (Auto) 31.4 % (10.0-50.0) Monocytes (%) (Auto) 8.1 % (0.0-12.0) Eosinophils (%) (Auto) 3.4 % (0.0-7.0) Basophils (%) (Auto) 2.5 % (0.0-2.0) Neutrophils # (Auto) 3.4 10 ^3/uL (1.6-8.6) Lymphocytes # (Auto) 1.9 10 ^3/uL (0.4-5.4) Monocytes # (Auto) 0.5 10 ^3/uL (0-1.3) Eosinophils # (Auto) 0.2 10 ^3/uL (0-0.8) Basophils # (Auto) 0.2 10 ^3/uL (0-0.2) Nucleated Red Blood Cells 0.5 % Platelet Estimate Increased Hypochromasia (manual) Moderate Anisocytosis (manual) Moderate Microcytosis Moderate Target Cells Few Ovalocytes Few Sodium Level 138 mmol/L (136-145) Potassium Level 4.3 mmol/L (3.5-5.1) Chloride Level 105 mmol/L (98-107) Carbon Dioxide Level 25 mmol/L (20-31) Anion Gap 8 (5-15) Blood Urea Nitrogen 13 mg/dL (9-23) Creatinine 0.74 mg/dL (0.550-1.02) Glomerular Filtration Rate Calc 94 mL/min (>90) BUN/Creatinine Ratio 17.6 (10.0-20.0) Serum Glucose 99 mg/dL (74-106) Calcium Level 9.6 mg/dL (8.7-10.4) Stool Occult Blood Negative (Negative) Stool Occult Blood Sample #3 (Negative) Reticulocyte Count (auto) 5.25 % (0.5-1.5) Iron Level 15 ug/dL (50-170) Total Iron Binding Capacity 430 ug/dL (250-425) Percent Iron Saturation 3.5 % (15-50) Vitamin B12 Level 521 pg/mL (211-911) Folic Acid 22.88 ng/mL (>5.38) Thyroid Stimulating Hormone (TSH) 3.47 uIU/mL (0.55-4.78) Test 11/27/24 09:14 11/27/24 07:19 11/26/24 16:44 11/26/24 15:24 POC Glucose 135 mg/dl (70-106) Total Bilirubin 0.4 mg/dL (0.2-1.0) Aspartate Amino Transferase (AST) 26 U/L (13-40) Alanine Aminotransferase (ALT) 28 U/L (7-40) Alkaline Phosphatase 101 U/L (46-116) Total Protein 6.6 g/dL (5.7-8.2) Albumin 4.1 g/dL (3.2-4.8) Large Platelets Few Stomatocytes Few D-Dimer, Quantitative 0.92 mg/L FEU (0.0-0.49) B-Type Natriuretic Peptide 146.27 pg/mL (0-100) Test 11/26/24 15:19 Urine Color Light-yellow (Yellow) Urine Clarity Clear (Clear) Urine pH 7.0 (5.0-9.0) Urine Specific Ina 1.016 (1.001-1.035) Urine Protein Negative (Negative) Urine Ketones Negative (Negative) Urine Blood Negative /uL (Negative) Urine Nitrite Negative (Negative) Urine Bilirubin Negative (Negative) Urine Urobilinogen Normal mg/dL (Negative) Urine Leukocyte Esterase Negative /uL (Negative) Urine RBC None seen /hpf (0 - 4) Urine Microscopic WBC /HPF (0-5) Urine Squamous Epithelial Cells Few /hpf (<5) Urine Bacteria None seen /hpf (None Seen) Urine Glucose Normal mg/dL (Normal) Other Laboratory Tests 11/30/24 07:21 Brief Hx & Hospital Course: Anemia of unknown etiology Elevated D-dimer Shortness of breath Generalized weakness History of peptic ulcer disease Hiatal hernia Continuing current management. Transfuse as needed for hemoglobin less than seven. Waiting for it assistant to see the patient. We will check occult blood of stool. cleared for discharge per GI Condition at Discharge: Good Final Diagnosis/Problems List see above Discharge Disposition: Home Discharge Instruct/Medications Diet: Cardiac 2g Na,low cholest Activity: No Restrictions, As Tolerated Discharge Statement: "Patient was advised to return to the ER or call 911 if any headaches, dizziness, shortness of breath, chest pain, abdominal pain, bleeding, fevers, or worsening of medical condition. Patient was counseled about treatment plan, medications, possible side effects, patientverbalized understanding. All questions were answered to the best of my ability. This discharge took greater then 30 minutes in planning, reviewing documentation, counseling the patient, and discussing with other team members." ASSESSMENT ASSESSMENT Assessment Date of Service: Dec 02, 2024 Billing Provider: GIULIA FOWLER DO Common Visit Codes: 59305-SDU/OBS DISCH DAY >30min GIULIA FOWLER DO Dec 02, 2024 13:00
[2024-12-03] MEDS ORDERED: NAPR-746 PO (15:06)
[2024-12-03] MEDS ORDERED: TRIA0.02 TOP (15:06)
== END 2024-12-02 15:00 | disposition home or self-care (01) | DRG 241 ==
LOC: ER 15:02 → TELE 23:25 → TELE-WESTW 11-27 23:21 → OVERFLOW 11-30 15:23 → WEST WING 11-30 15:42 → OVERFLOW 12-01 13:15 → TELE-WESTW 12-01 13:30
PROVIDERS: ADMIT Nurse Practitioner Family; ATTEND Internal Medicine
PROC: 30233N1 Transfusion of Nonautologous Red Blood Cells into Peripheral Vein, Percutaneous Approach (ICD-10-PCS; 2024-11-26)
PROC: 0DB68ZX Excision of Stomach, Via Natural or Artificial Opening Endoscopic, Diagnostic (ICD-10-PCS; 2024-12-01)
PROC: 0DB98ZX Excision of Duodenum, Via Natural or Artificial Opening Endoscopic, Diagnostic (ICD-10-PCS; principal; 2024-12-01 13:38)
DX: K25.9 Gastric ulcer, unspecified as acute or chronic, without hemorrhage or perforation (principal); D50.9 Iron deficiency anemia, unspecified; K57.30 Diverticulosis of large intestine without perforation or abscess without bleeding; K29.70 Gastritis, unspecified, without bleeding; K44.9 Diaphragmatic hernia without obstruction or gangrene; Z90.49 Acquired absence of other specified parts of digestive tract; Z83.3 Family history of diabetes mellitus; Z87.11 Personal history of peptic ulcer disease; Z82.5 Family history of asthma and other chronic lower respiratory diseases
CPT/HCPCS: 36415; 36430; 43239; 71045; 71275; 74176; 80048; 80053; 81001; 82270; 82607; 82746; 82962; 83540; 83550; 83880; 84443; 85025; 85045; 85379; 85610; 85730; 86850; 86900; 86901; 86920; 93005; 94640; 96372; 96374; G0378; J1100; J1756; J2250; J2405

== ENCOUNTER 2024-12-03 12:03 | Emergency (ER) | payer SELFPAY ==
[~2024-12-03] VITALS: Ht 149.9 cm; Wt 71.9 kg
[~2024-12-03 12:03] MED LIST changes: +GABA-1250 PO; +OME20GT PO; +PANT40T PO; +SUCR1SUS26 PO
--- NOTE | 2024-12-03 13:30 | ED.PDOC ---
History of Present Illness(SKN HPI Comments A 59 YEAR OLD FEMALE PRESENTS TO THE ED WITH COMPLAINT OF RIGHT FOREARM REDNESS AND SWELLING. PATIENT STATES SHE WAS ADMITTED TO THIS HOSPITAL 1 WEEK AGO DUE TO SEVERE ANEMIA WHERE SHE HAD A BLOOD TRANSFUSION DONE. PATIENT REPORTS SHE HAD AN IV PLACED IN HER RIGHT FOREARM WHILE SHE WAS ADMITTED AND WAS DISCHARGED 3 DAYS AGO. PATIENT REPORTS SHE BEGAN TO EXPERIENCE REDNESS, SWELLING, AND PAIN TO HER RIGHT FOREARM 2 DAYS AGO, PROMPTING HER TO COME BACK TO THE ED TODAY FOR EVALUATION. PATIENT DENIES FEVER, CHILLS, SHORTNESS OF BREATH, CHEST PAIN, ABDOMINAL PAIN, NAUSEA, VOMITING, HEADACHE, OR OTHER COMPLAINTS. NO OTHER SYMPTOMS OR MODIFYING FACTORS AT THIS TIME. PATIENT IS ALERT, ORIENTED X 4, AND HAS STEADY GAIT. Chief Complaint: Wound Check Time Seen by MD: 12:18 Primary Care Provider: MANUEL History of Present Illness: Nurses Notes, Medications, Allergies Allergies: Coded Allergies: NO KNOWN ALLERGIES (Unverified , 01/30/14) Home Meds Active Scripts Naproxen (Naproxen) 500 Mg Tab, 500 MG PO BID, #30 TAB Prov:LUCA CHAWLA 12/03/24 Triamcinolone Acetonide (Triamcinolone Acetonide) 0.025 % Cre, 1 APPLIC TOP BID, #30 GRAMS Prov:LUCA CHAWLA 12/03/24 Sucralfate (CARAFATE SUSP) 1 Gm/10 Ml Ss, 1 GM PO BID@0600,2200 for 30 Days, #60 ML 4 Refills Prov:GIULIA FOWLER DO 12/02/24 Pantoprazole Sodium Sesquihydr (Pantoprazole Sodium) 40 Mg Tab, 40 MG PO BID for 30 Days, #60 TAB 4 Refills Prov:GIULIA FOWLER DO 12/02/24 Ibuprofen Micronized (Ibuprofen) 600 Mg Tab, 600 MG PO Q6HP PRN, #30 TAB Prov:JENNA NAVARRO MD 06/19/24 Acetaminophen (Tylenol Extra Strength) 500 Mg Tab, 1000 MG PO Q6HP PRN, #30 TAB Prov:JENNA NAVARRO MD 06/19/24 Amoxicillin & Pot Clavulanate (AUGMENTIN TABLET) 875 Mg Tb, 875 MG PO BID for 10 Days, #20 TAB Prov:JENNA NAVARRO MD 06/19/24 Reported Medications Gabapentin (Gabapentin) 300 Mg Cap, 300 MG PO PRN for 30 Days, MG 11/28/24 Omeprazole (Prilosec Susp (For Gt)) 20 Mg Ss, 20 MG PO DAILY, ML 11/28/24 Information Source: Patient Mode of Arrival: Ambulatory Severity: Moderate Timing: Days Duration: Since onset, Days Prehospital treatment: None Location: Arm (RIGHT FOREARM) Mechanism: Preceding Wound (IV INSERCTION REGION ) Occurence: Indoors Object: None Condition of Object: Contaminated (POSSIBLE ), None Retained Foreign Body: No Wound Type: Puncture (TINY PUNCTURE WOUND ON RIGHT VOLAR FOREARM. 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 History Family History Family History: Family hx of DM Social History Smoker: Non-Smoker Alcohol: Rarely Drugs: Marijuana, Methamphetamine Lives In: Home Constitutional: denies: chills, diaphoresis, fatigue, fever, malaise, sweats, weakness, others EENTM: denies: blurred vision, double vision, ear bleeding, ear discharge, ear drainage, ear pain, ear ringing, eye pain, eye redness, hearing loss, mouth pain, mouth swelling, nasal discharge, nose bleeding, nose congestion, nose pain, photophobia, tearing, throat pain, throat swelling, voice changes, others Respiratory: denies: cough, hemoptysis, orthopnea, SOB at rest, shortness of breath, SOB with excertion, stridor, wheezing, others Cardiovascular: denies: chest pain, dizzy spells, diaphoresis, Dyspnea on exertion, edema, irregular heart beat, left arm pain, lightheadedness, palpitations, PND, syncope, others Gastrointestinal: denies: abdomen distended, abdominal pain, blood streaked bowels, constipated, diarrhea, dysphagia, difficulty swallowing, hematemesis, melena, nausea, poor appetite, poor fluid intake, rectal bleeding, rectal pain, vomiting, others Genitourinary: denies: abnormal vagina bleeding, burning, dyspareunia, dysuria, flank pain, frequency, hematuria, incontinence, pain, , vagina discharge, urgency, others Neurological: denies: dizziness, fainting, headache, left sided numbness, left sided weakness, numbness, paresthesia, pre-existing deficit, right sided numbness, right sided weakness, seizure, speech problems, tingling, tremors, weakness, others Musculoskeletal: denies: back pain, gout, joint pain, joint swelling, muscle pain, muscle stiffness, neck pain, others Integumetry: reports: wounds (RIGHT DORSAL FOREARM ), others (REDNESS AND SWELLING OF RIGHT FOREARM); denies: bruises, change in color, change in hair/nails, dryness, laceration, lesions, lumps, rash Allergic/Immunocompromised: denies: Difficulty Healing, Frequent Infections, Hives, Itching, others Hematologic/Lymphatic: denies: anemia, blood clots, easy bleeding, easy bruising, swollen glands, others Endocrine: denies: excessive hunger, excessive sweating, excessive thirst, excessive urination, flushing, intolerance to cold, intolerance to heat, unexplained weight gain, unexplained weight loss, others Psychiatric: denies: anxiety, bipolar disorder, depression, hopeless, panic disorder, schizophrenia, sleepless, suicidal, others All Other Systems: Reviewed and Negative Physical Exam General Appearance: No Apparent Distress, Normal, Other (ANXIOUS ) HEENT: Normal ENT Inspection, PERRL/EOMI, Pharynx Normal, TMs Normal Neck: Full Range of Motion, Non-Tender, Normal, Normal Inspection Respiratory: Chest Non-Tender, Lungs Clear, No Accessory Muscle Use, No Respiratory Distress, Normal Breath Sounds Cardiovascular: No Edema, No JVD, No Murmur, No Gallop, Normal Peripheral Pulses, Regular Rate/Rhythm Breast Exam: Deferred Gastrointestinal: No Organomegaly, Non Tender, No Pulsatile Mass, Normal Bowel Sounds, Soft Genitalia: Deferred Pelvic: Deferred Rectal: Deferred Extremities: No calf tenderness, Normal capillary refill, Normal range of motion, No pedal edema, Swelling (TENDERNESS ON RIGHT DORSAL FOREARM WITH A TINY PUNCTURE WOUND. ), Tender (WITH LOCALIZED REDNESS AND SWELLING ON RIGHT DORSAL FOREARM AND MILD RIGHT VOLAR FOREARM. ) Musculoskeletal : Apperance: Normal Neurologic: Alert, physician advisor II-XII nml as Tested, No Motor Deficits, Normal Affect, Normal Mood, No Sensory Deficits Cerebellar Function: Normal Reflexes: Normal Skin: Dry, Warm, Wounds (A TINY PUNCTURE WOUND ON RIGHT DORSAL FOREARM, NO PUS DRAINAGE. ) Peripheral Pulses: 2+ carotid (R), 2+ carotid (L), 2+ Radial (R), 2+ Radial (L) Lymphatic: No Adenopathy Was a procedure done? Was a procedure done?: No Differential Diagnosis (INTG) Differential Diagnosis: Cellulitis, N/A Differential Diagnosis: Cellulitis, Erysipelas, Other (DVT, SUPERFICIAL THROMBOSIS) Differential Diagnosis: N/A Abscess: N/A Differential Diagnosis: N/A X-Ray, Labs, Meds, VS Vital Signs Date Time Temp Pulse Resp B/P (MAP) Pulse Ox O2 Delivery O2 Flow Rate FiO2 12/03/24 13:56 96 18 96 Room Air 12/03/24 13:56 98.1 96 18 123/80 (94) 96 98.1 12/03/24 12:11 98.1 96 18 123/80 (94) 96 Current Medications Medications (Trade) Dose Ordered Sig/Shiv Route Start Time Stop Time Status Last Admin Ketorolac Tromethamine (Toradol Injection) 60 mg ONCE ONCE IM 12/03/24 15:00 12/03/24 15:01 DC 12/03/24 15:01 EXAM: US RT UPPER DVT Clinical History: RIGHT FOREARM PAIN AND SWELLING POST IV INSECTION Comparison: None Technique: Duplex Doppler evaluation of the deep venous systems of the right upper extremity including color Doppler and spectral/pulsed waveform analysis was performed. Findings: Normal compressibility and color Doppler flow is seen in the right upper extremity veins including the internal jugular, subclavian, axillary, brachial, radial and ulnar veins. Superficial venous thrombus in the right basilic vein. Impression: 1. No sonographic evidence for right upper extremity DVT. 2. Superficial venous thrombus in the right basilic vein. ATED BY: YVONNE GUAJARDO DO DICTATED DATE/TIME: 12/03/241437 SIGNED BY: YVONNE GUAJARDO DO SIGNED DATE/TIME: 12/03/241437 CC: X-Ray, Labs, Meds, VS Comment EXTERNAL MEDICAL RECORDS REVIEWED: [NONE] INDEPENDENT HISTORIANS: [NONE] SOCIAL DETERMINANTS OF HEALTH: [NONE] LABS ORDERED: NONE REVIEWED AND INTERPRETED RESULTS: NONE IMAGING ORDERED: CV VENOUS DOPPLER UP EXT RT TREATMENTS ORDERED: TORADOL 60 MG IM PROCEDURES PERFORMED: NONE CRITICAL CARE TIME: NONE I HAVE DISCUSSED THE PATIENT WITH THE ATTENDING PHYSICIAN DR. WILKINSON AND HE AGREES WITH THE PATIENT'S PLAN OF CARE AND DISPOSITION. BASED ON HISTORY OF PRESENT ILLNESS, AND PHYSICAL EXAM, PATIENT WILL BE DISCHARGED HOME. DISCUSSED PLAN FOR DISCHARGE HOME WITH RX [NAPROXEN 500 MG AND TRIAMCINOLONE CREAM]. MEDICATION WARNINGS GIVEN. SHARED DECISION MAKING: PATIENT INSTRUCTED TO FOLLOW UP WITH PRIMARY CARE PROVIDER IN 1-2 DAYS FOR RE-EVALUATION OF SYMPTOMS. PATIENT VERBALIZES UNDERSTANDING TO RETURN TO ED FOR NEW OR WORSENING SYMPTOMS OR IF FOLLOW UP WITH PCP CANNOT BE OBTAINED. PATIENT FEELS COMFORTABLE GOING HOME AT THIS TIME. ALL QUESTIONS ADDRESSED AT TIME OF DISCHARGE. Images Reviewed?: Images reviewed and evaluated by me Time of 1ST Reevaluation: 15:13 Reevaluation 1ST: Improved Patient Education/Counseling: Diagnosis, Treatment, Need For Follow Up Family Education/Counseling: Diagnosis, Treatment, Need For Follow Up Medical Screening: No EMC Exist At This Time Departure 1 Departure Time of Disposition: 15:30 Impression: Primary Impression: Superficial venous thrombosis of right upper extremity Disposition: 01 HOME / SELF CARE / HOMELESS Condition: Stable Additional Instructions: FOLLOW-UP WITH PCP IN 1 TO 2 DAYS. TAKE MEDICATIONS PRESCRIBED. RETURN TO ED FOR ANY NEW OR WORSENING SYMPTOMS. e-Prescriptions Naproxen (Naproxen) 500 Mg Tab 500 MG PO BID, #30 TAB Prov: LUCA CHAWLA 12/03/24 Triamcinolone Acetonide (Triamcinolone Acetonide) 0.025 % Cre 1 APPLIC TOP BID, #30 GRAMS Prov: LUCA CHAWLA 12/03/24 Discharged With: Self Critical Care Note Critical Care Time?: No Stability Stability form required: No I personally scribed for LUCA CHAWLA ([email or web address]) on 12/03/24 at 13:30. Electronically submitted by Jace Lundberg ([email or web address]). I personally scribed for LUCA CHAWLA ([email or web address]) on 12/03/24 at 15:07. Electronically submitted by Jace Lundberg ([email or web address]). LUCA CHAWLA Dec 03, 2024 13:30
[2024-12-03 13:56] VITALS: BP 123/80; PULSE 96; RESP 18; TEMP 98.1; O2SAT 96
--- NOTE | 2024-12-03 14:41 | DVH ---
EXAM: US RT UPPER DVT Clinical History: RIGHT FOREARM PAIN AND SWELLING POST IV INSECTION Comparison: None Technique: Duplex Doppler evaluation of the deep venous systems of the right upper extremity including color D oppler and spectral/pulsed waveform analysis was performed. Findings: Normal compressibility and color Doppler flow is seen in the right upper extremity veins including th e internal jugular, subclavian, axillary, brachial, radial and ulnar veins. Superficial venous thrombus in the right basilic vein. Impression: 1. No sonographic evidence for right upper extremity DVT. 2. Superficial venous thrombus in the right basilic vein.
[2024-12-03] MEDS: KETOROLAC TROMETH 60MG/2ML VIAL IM ONE (15:01)
[2024-12-03] MEDS ORDERED: TRIA0.02 TOP (15:06)
[2024-12-03] MEDS ORDERED: NAPR-746 PO (15:06)
== END 2024-12-03 15:20 | disposition home or self-care (01) ==
LOC: ER 12:03
DX: I82.611 Acute embolism and thrombosis of superficial veins of right upper extremity (principal); D64.9 Anemia, unspecified; Z79.899 Other long term (current) drug therapy; Z87.11 Personal history of peptic ulcer disease; Z90.49 Acquired absence of other specified parts of digestive tract; Z90.89 Acquired absence of other organs; Z98.51 Tubal ligation status
CPT/HCPCS: 93971; 96372; 99285; J1885

== ENCOUNTER 2025-06-18 07:19 | Emergency (ER) | payer MEDICAID ==
[~2025-06-18] VITALS: Ht 149.9 cm; Wt 76.2 kg
[~2025-06-18 07:19] MED LIST changes: +NAPR-746 PO; +TRIA0.02 TOP
--- NOTE | 2025-06-18 07:42 | ED.PDOC ---
Back pain HPI HPI Comments This is a 59 year old female presenting to the ED with chief complaint of back pain. Patient reports that she has been experiencing right lower back pain for the past 1.5 weeks. 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 Patient notes she has not experienced this kind of pain before. Patient denies any numbness, weakness, tingling, fall, injury, or headache. Chief Complaint: Back Pain Time Seen by MD: 07:40 Primary Care Provider: MANUEL Reviewed Notes: Nurses Notes, Medications, Allergies Allergies: Coded Allergies: NO KNOWN ALLERGIES (Unverified , 01/30/14) Home Meds Active Scripts Hydrocodone-Acetaminophen (Hydrocodone Bitartrate/AC 5-325 mg) 1 Tab Tab, 1 TAB PO BID for 5 Days, #10 TAB Prov:ESTEVAN FLOYD MD 06/18/25 Cyclobenzaprine Hcl (Cyclobenzaprine Hcl) 10 Mg Tab, 10 MG PO TID for 5 Days, #15 TAB Prov:ESTEVAN FLOYD MD 06/18/25 Dexamethasone (Decadron) 4 Mg Tb, 4 MG PO BID for 5 Days, #10 TAB Prov:ESTEVAN FLOYD MD 06/18/25 Naproxen (Naproxen) 500 Mg Tab, 500 MG PO BID, #30 TAB Prov:LUCA CHAWLA 12/03/24 Triamcinolone Acetonide (Triamcinolone Acetonide) 0.025 % Cre, 1 APPLIC TOP BID, #30 GRAMS Prov:LUCA CHAWLA 12/03/24 Sucralfate (CARAFATE SUSP) 1 Gm/10 Ml Ss, 1 GM PO BID@0600,2200 for 30 Days, #60 ML 4 Refills Prov:GIULIA FOWLER DO 12/02/24 Pantoprazole Sodium Sesquihydr (Pantoprazole Sodium) 40 Mg Tab, 40 MG PO BID for 30 Days, #60 TAB 4 Refills Prov:GIULIA FOWLER DO 12/02/24 Ibuprofen Micronized (Ibuprofen) 600 Mg Tab, 600 MG PO Q6HP PRN, #30 TAB Prov:JENNA NAVARRO MD 06/19/24 Acetaminophen (Tylenol Extra Strength) 500 Mg Tab, 1000 MG PO Q6HP PRN, #30 TAB Prov:JENNA NAVARRO MD 06/19/24 Amoxicillin & Pot Clavulanate (AUGMENTIN TABLET) 875 Mg Tb, 875 MG PO BID for 10 Days, #20 TAB Prov:JENNA NAVARRO MD 06/19/24 Reported Medications Gabapentin (Gabapentin) 300 Mg Cap, 300 MG PO PRN for 30 Days, MG 11/28/24 Omeprazole (Prilosec Susp (For Gt)) 20 Mg Ss, 20 MG PO DAILY, ML 11/28/24 Information Source: Patient Mode of Arrival: Ambulatory Timing: Weeks Duration: Since onset Location of Back pain: (R) Lower back Severity: Moderate Prehospital treatment: None Quality: Aching Onset: Bending, Lifing History of: None Modifying Factors: Nothing Past Medical History PAST MEDICAL HISTORY: Anemia, PUD Surgical History: Cholecystectomy, , Tonsillectomy, Tubal Ligation PLANNING OFFICIAL History: No Pertinent PLANNING OFFICIAL History Family History Family History: Reviewed,noncontributory to illness, Family hx of DM Social History Smoker: Non-Smoker Alcohol: Rarely Drugs: Marijuana, Methamphetamine Lives In: Home Constitutional: denies: chills, diaphoresis, fatigue, fever, malaise, sweats, weakness, others EENTM: denies: blurred vision, double vision, ear bleeding, ear discharge, ear drainage, ear pain, ear ringing, eye pain, eye redness, hearing loss, mouth pain, mouth swelling, nasal discharge, nose bleeding, nose congestion, nose pain, photophobia, tearing, throat pain, throat swelling, voice changes, others Respiratory: denies: cough, hemoptysis, orthopnea, SOB at rest, shortness of breath, SOB with excertion, stridor, wheezing, others Cardiovascular: denies: chest pain, dizzy spells, diaphoresis, Dyspnea on exertion, edema, irregular heart beat, left arm pain, lightheadedness, palpitations, PND, syncope, others Gastrointestinal: denies: abdomen distended, abdominal pain, blood streaked bowels, constipated, diarrhea, dysphagia, difficulty swallowing, hematemesis, melena, nausea, poor appetite, poor fluid intake, rectal bleeding, rectal pain, vomiting, others Genitourinary: denies: abnormal vagina bleeding, burning, dyspareunia, dysuria, flank pain, frequency, hematuria, incontinence, pain, , vagina discharge, urgency, others Neurological: denies: dizziness, fainting, headache, left sided numbness, left sided weakness, numbness, paresthesia, pre-existing deficit, right sided numbness, right sided weakness, seizure, speech problems, tingling, tremors, weakness, others Musculoskeletal: reports: back pain; denies: gout, joint pain, joint swelling, muscle pain, muscle stiffness, neck pain, others Integumetry: denies: bruises, change in color, change in hair/nails, dryness, l aceration, lesions, lumps, rash, wounds, others Allergic/Immunocompromised: denies: Difficulty Healing, Frequent Infections, Hives, Itching, others Hematologic/Lymphatic: denies: anemia, blood clots, easy bleeding, easy bruising, swollen glands, others Endocrine: denies: excessive hunger, excessive sweating, excessive thirst, excessive urination, flushing, intolerance to cold, intolerance to heat, unexplained weight gain, unexplained weight loss, others Psychiatric: denies: anxiety, bipolar disorder, depression, hopeless, panic disorder, schizophrenia, sleepless, suicidal, others All Other Systems: Reviewed and Negative Physical Exam General Appearance: Moderate Distress, Normal HEENT: Normal ENT Inspection, PERRL/EOMI, Pharynx Normal, TMs Normal Neck: Full Range of Motion, Non-Tender, Normal, Normal Inspection Respiratory: Chest Non-Tender, Lungs Clear, No Accessory Muscle Use, No Respiratory Distress, Normal Breath Sounds Cardiovascular: No Edema, No JVD, No Murmur, No Gallop, Normal Peripheral Pulses, Regular Rate/Rhythm Breast Exam: Deferred Gastrointestinal: No Organomegaly, Non Tender, No Pulsatile Mass, Normal Bowel Sounds, Soft Genitalia: Deferred Pelvic: Deferred Rectal: Deferred Extremities: No calf tenderness, Normal capillary refill, Normal inspection, Normal range of motion, Non-tender, No pedal edema Musculoskeletal : Location: Right Extremity Location: Back Apperance: Limited ROM, Tenderness: Moderate, NOT DONE (With a radiculopathy to the right leg) Neurologic: Alert, line up worker II-XII nml as Tested, No Motor Deficits, Normal Affect, Normal Mood, No Sensory Deficits Cerebellar Function: Normal Reflexes: Normal Skin: Dry, Normal Color, Warm Peripheral Pulses: 1+ carotid (R), 1+ carotid (L) Lymphatic: No Adenopathy Was a procedure done? Was a procedure done?: No Back Pain Differential Dx Differential Diagnosis: DJD, Musculoskeletal Pain, Strain X-Ray, Labs, Meds, VS Vital Signs Date Time Temp Pulse Resp B/P (MAP) Pulse Ox O2 Delivery O2 Flow Rate FiO2 06/18/25 07:52 63 18 96 Room Air* 0 21 06/18/25 07:52 97.9 63 18 141/75 (97) 96 97.9 06/18/25 07:20 98.2 63 18 137/59 96 98.2 Current Medications Medications (Trade) Dose Ordered Sig/Shiv Route Start Time Stop Time Status Last Admin Ketorolac Tromethamine (Toradol Injection) 60 mg ONCE ONCE IM 06/18/25 08:00 06/18/25 08:01 DC 06/18/25 07:57 Time of 1ST Reevaluation: 07:45 Reevaluation 1ST: Improved Time of 2ND Reevaluation: 07:59 Reevaluation 2ND: Improved Consultation: PCP Patient Education/Counseling: Diagnosis, Treatment, Prognosis, Need For Follow Up Family Education/Counseling: Diagnosis, Treatment, Prognosis, Need For Follow Up, No Family Present SEPSIS Sepsis Screen Date sepsis recognized/suspect: Jun 18, 2025 Time Sepsis recognized/suspect: 721 Recent Procedure: No Respiratory Rate >20: No Heart Rate >90: No Temp<36 C (96.8 F) or >38.3 C: No SBP <90 or MAP <65 mmHG: No New Acute Mental Status Change: No Is the patient on CPAP, BIPAP,: No Vital Signs Date Time Temp Pulse Resp B/P (MAP) Pulse Ox O2 Delivery O2 Flow Rate FiO2 06/18/25 07:52 63 18 96 Room Air* 0 21 06/18/25 07:52 97.9 63 18 141/75 (97) 96 97.9 06/18/25 07:20 98.2 63 18 137/59 96 98.2 Medications Medications Dose Ordered Sig/Shiv Route Start Time Stop Time Status Last Admin Dose Admin Ketorolac Tromethamine 60 mg ONCE ONCE IM 06/18/25 08:00 06/18/25 08:01 DC 06/18/25 07:57 Departure 1 Departure Time of Disposition: 08:05 Impression: Primary Impression: Lumbar radiculopathy Additional Impression: Musculoskeletal pain Disposition: HOME / SELF CARE / HOMELESS Condition: Fair Additional Instructions: Follow up with your PCP e-Prescriptions Hydrocodone-Acetaminophen (Hydrocodone Bitartrate/AC 5-325 mg) 1 Tab Tab 1 TAB PO BID for 5 Days, #10 TAB Prov: ESTEVAN FLOYD MD 06/18/25 Cyclobenzaprine Hcl (Cyclobenzaprine Hcl) 10 Mg Tab 10 MG PO TID for 5 Days, #15 TAB Prov: ESTEVAN FLOYD MD 06/18/25 Dexamethasone (Decadron) 4 Mg Tb 4 MG PO BID for 5 Days, #10 TAB Prov: ESTEVAN FLOYD MD 06/18/25 Discharged With: Self Critical Care Note Critical Care Time?: No Stability Stability form required: No Heart Score Heart Score: Heart Score Response (Comments) Value History N/A 0 EKG N/A 0 Age 45-64 1 Risk Factors No known risk factors 0 Troponin N/A 0 Total 1 I personally scribed for ESTEVAN FLOYD MD ([email or web address]) on 06/18/25 at 07:41. Electronically submitted by Gary Barron ([email or web address]). ESTEVAN FLOYD MD Jun 18, 2025 07:41
[2025-06-18 07:52] VITALS: BP 141/75; PULSE 63; RESP 18; TEMP 97.9; O2SAT 96
[2025-06-18] MEDS: KETOROLAC TROMETH 60MG/2ML VIAL IM ONE (07:57)
[2025-06-18] MEDS ORDERED: CYCL-839 PO (08:04)
[2025-06-18] MEDS ORDERED: DEX4T PO (08:04)
[2025-06-18] MEDS ORDERED: HYDR-4902 PO (08:04)
== END 2025-06-18 08:33 | disposition home or self-care (01) ==
LOC: ER 07:19
DX: M54.16 Radiculopathy, lumbar region (principal); M79.10 Myalgia, unspecified site; Z90.89 Acquired absence of other organs; Z90.49 Acquired absence of other specified parts of digestive tract; Z98.51 Tubal ligation status; Z87.11 Personal history of peptic ulcer disease; Z79.899 Other long term (current) drug therapy
CPT/HCPCS: 96372; 99283; J1885

== ENCOUNTER 2025-08-12 13:49 | Emergency (ER) | payer MEDICAID ==
[~2025-08-12] VITALS: Ht 147.3 cm; Wt 77.8 kg
[~2025-08-12 13:49] MED LIST changes: +CYCL-839 PO; +DEX4T PO; +HYDR-4902 PO
[2025-08-12] MEDS ORDERED: CEPH500C PO (14:28)
[2025-08-12 14:35] VITALS: BP 131/89; PULSE 82; RESP 18; TEMP 98.5; O2SAT 98
--- NOTE | 2025-08-12 14:35 | ED.PDOC ---
History of Present Illness(SKN HPI Comments A 59 YEAR OLD FEMALE PRESENTS TO THE ED WITH COMPLAINT OF INSECT BITE OF RIGHT FOREARM. PATIENT STATES SHE WAS BITTEN BY AN INSECT HER RIGHT POSTERIOR FOREARM EARLIER TODAY AT ABOUT 0400. PATIENT NOTES THAT SHE HAS MILD PAIN AND REDNESS TO THIS AREA. PATIENT DENIES FEVER, CHILLS, SHORTNESS OF BREATH, CHEST PAIN, ABDOMINAL PAIN, NAUSEA, VOMITING, HEADACHE, OR OTHER COMPLAINTS. NO OTHER SYMPTOMS OR MODIFYING FACTORS AT THIS TIME. PATIENT IS ALERT, ORIENTED X 4, AND HAS STEADY GAIT. Chief Complaint: Insect Bite Time Seen by MD: 13:58 Primary Care Provider: MANUEL History of Present Illness: Nurses Notes, Medications, Allergies Allergies: Coded Allergies: NO KNOWN ALLERGIES (Unverified , 01/30/14) Home Meds Active Scripts Cephalexin Monohydrate (Cephalexin) 500 Mg Cap, 1 CAP PO QID, #28 CAP Prov:LUCA CHAWLA 08/12/25 Triamcinolone Acetonide (Triamcinolone Acetonide) 0.025 % Cre, 1 APPLIC TOP BID, #30 GRAMS Prov:LUCA CHAWLA 08/12/25 Hydrocodone-Acetaminophen (Hydrocodone Bitartrate/AC 5-325 mg) 1 Tab Tab, 1 TAB PO BID for 5 Days, #10 TAB Prov:ESTEVAN FLOYD MD 06/18/25 Cyclobenzaprine Hcl (Cyclobenzaprine Hcl) 10 Mg Tab, 10 MG PO TID for 5 Days, #15 TAB Prov:ESTEVAN FLOYD MD 06/18/25 Dexamethasone (Decadron) 4 Mg Tb, 4 MG PO BID for 5 Days, #10 TAB Prov:ESTEVAN FLOYD MD 06/18/25 Naproxen (Naproxen) 500 Mg Tab, 500 MG PO BID, #30 TAB Prov:LUCA CHAWLA 12/03/24 Triamcinolone Acetonide (Triamcinolone Acetonide) 0.025 % Cre, 1 APPLIC TOP BID, #30 GRAMS Prov:LUCA CHAWLA 12/03/24 Sucralfate (CARAFATE SUSP) 1 Gm/10 Ml Ss, 1 GM PO BID@0600,2200 for 30 Days, #60 ML 4 Refills Prov:GIULIA FOWLER DO 12/02/24 Pantoprazole Sodium Sesquihydr (Pantoprazole Sodium) 40 Mg Tab, 40 MG PO BID for 30 Days, #60 TAB 4 Refills Prov:FOWLERGIULIA Johnson Keith DO 12/02/24 Ibuprofen Micronized (Ibuprofen) 600 Mg Tab, 600 MG PO Q6HP PRN, #30 TAB Prov:JENNA NAVARRO MD 06/19/24 Acetaminophen (Tylenol Extra Strength) 500 Mg Tab, 1000 MG PO Q6HP PRN, #30 TAB Prov:JENNA NAVARRO MD 06/19/24 Amoxicillin & Pot Clavulanate (AUGMENTIN TABLET) 875 Mg Tb, 875 MG PO BID for 10 Days, #20 TAB Prov:JENNA NAVARRO MD 06/19/24 Reported Medications Gabapentin (Gabapentin) 300 Mg Cap, 300 MG PO PRN for 30 Days, MG 11/28/24 Omeprazole (Prilosec Susp (For Gt)) 20 Mg Ss, 20 MG PO DAILY, ML 11/28/24 Information Source: Patient Mode of Arrival: Ambulatory Severity: Moderate Timing: Hours Duration: Since onset, Hours Prehospital treatment: None Location: Arm (FOREARM) Mechanism: Insect Occurence: Indoors Object: None Condition of Object: None Retained Foreign Body: No Wound Type: Other (INSECT BITE) Immunization Status of Animal: NA Tetanus: Unknown History of: None Associated Signs and Symptoms: Redness, Swelling, Pain Past Medical History PAST MEDICAL HISTORY: Anemia, PUD Surgical History: Cholecystectomy, , Tonsillectomy, Tubal Ligation ENVIRONMENTAL EDUCATOR History: No Pertinent ENVIRONMENTAL EDUCATOR History Family History Family History: Reviewed,noncontributory to illness, Family hx of DM Social History Smoker: Non-Smoker Alcohol: Rarely Drugs: Marijuana, Methamphetamine Lives In: Home Constitutional: denies: chills, diaphoresis, fatigue, fever, malaise, sweats, weakness, others EENTM: denies: blurred vision, double vision, ear bleeding, ear discharge, ear drainage, ear pain, ear ringing, eye pain, eye redness, hearing loss, mouth pain, mouth swelling, nasal discharge, nose bleeding, nose congestion, nose pain, photophobia, tearing, throat pain, throat swelling, voice changes, others Respiratory: denies: cough, hemoptysis, orthopnea, SOB at rest, shortness of breath, SOB with excertion, stridor, wheezing, others Cardiovascular: denies: chest pain, dizzy spells, diaphoresis, Dyspnea on exertion, edema, irregular heart beat, left arm pain, lightheadedness, palpitations, PND, syncope, others Gastrointestinal: denies: abdomen distended, abdominal pain, blood streaked bowels, constipated, diarrhea, dysphagia, difficulty swallowing, hematemesis, melena, nausea, poor appetite, poor fluid intake, rectal bleeding, rectal pain, vomiting, others Genitourinary: denies: abnormal vagina bleeding, burning, dyspareunia, dysuria, flank pain, frequency, hematuria, incontinence, pain, , vagina discharge, urgency, others Neurological: denies: dizziness, fainting, headache, left sided numbness, left sided weakness, numbness, paresthesia, pre-existing deficit, right sided numbness, right sided weakness, seizure, speech problems, tingling, tremors, weakness, others Musculoskeletal: denies: back pain, gout, joint pain, joint swelling, muscle pain, muscle stiffness, neck pain, others Integumetry: reports: lumps (RIGHT POSTERIOR FOREARM. ), others (INSECT BITE OF RIGHT POSTERIOR FOREARM); denies: bruises, change in color, change in hair/nails, dryness, laceration, lesions, rash, wounds Allergic/Immunocompromised: denies: Difficulty Healing, Frequent Infections, Hives, Itching, others Hematologic/Lymphatic: denies: anemia, blood clots, easy bleeding, easy bruising, swollen glands, others Endocrine: denies: excessive hunger, excessive sweating, excessive thirst, excessive urination, flushing, intolerance to cold, intolerance to heat, unexplained weight gain, unexplained weight loss, others Psychiatric: denies: anxiety, bipolar disorder, depression, hopeless, panic disorder, schizophrenia, sleepless, suicidal, others All Other Systems: Reviewed and Negative Physical Exam General Appearance: No Apparent Distress, Obese HEENT: Normal ENT Inspection, PERRL/EOMI, Pharynx Normal, TMs Normal Neck: Full Range of Motion, Non-Tender, Normal, Normal Inspection Respiratory: Chest Non-Tender, Lungs Clear, No Accessory Muscle Use, No Respiratory Distress, Normal Breath Sounds Cardiovascular: No Edema, No JVD, No Murmur, No Gallop, Normal Peripheral Pulses, Regular Rate/Rhythm Breast Exam: Deferred Gastrointestinal: No Organomegaly, Non Tender, No Pulsatile Mass, Normal Bowel Sounds, Soft Genitalia: Deferred Pelvic: Deferred Rectal: Deferred Extremities: No calf tenderness, Normal capillary refill, Normal range of motion, No pedal edema, Tender (WITH A RED BUMP ON RIGHT POSTERIOR FOREARM, NO OPEN WOUND SEEN. ) Musculoskeletal : Apperance: Normal Neurologic: Alert, review trainer II-XII nml as Tested, No Motor Deficits, Normal Affect, Normal Mood, No Sensory Deficits Cerebellar Function: Normal Reflexes: Normal Skin: Dry, Normal Color, Warm, Other (A RED BUMP WITH LOCALIZED REDNESS AND TENDERNESS ON RIGHT POSTERIOR FOREARM, NO OPEN WOUND AND DRAINAGE SEEN. ) Peripheral Pulses: 2+ carotid (R), 2+ carotid (L) Lymphatic: No Adenopathy Was a procedure done? Was a procedure done?: No Differential Diagnosis (INTG) Differential Diagnosis: Abrasion, Cellulitis, Contusion, Insect Envenomation, Puncture Wound Differential Diagnosis: Impetigo, Intertrigo, N/A Differential Diagnosis: N/A Abscess: N/A Differential Diagnosis: N/A X-Ray, Labs, Meds, VS Vital Signs Date Time Temp Pulse Resp B/P (MAP) Pulse Ox O2 Delivery O2 Flow Rate FiO2 08/12/25 14:35 98.5 82 18 131/89 (103) 98 98.5 08/12/25 14:35 82 18 98 Room Air 08/12/25 13:51 98.5 82 18 131/89 98 98.5 X-Ray, Labs, Meds, VS Comment EXTERNAL MEDICAL RECORDS REVIEWED: [NONE] INDEPENDENT HISTORIANS: [NONE] SOCIAL DETERMINANTS OF HEALTH: [NONE] LABS ORDERED: NONE REVIEWED AND INTERPRETED RESULTS: NONE IMAGING ORDERED: NONE TREATMENTS ORDERED: NONE PROCEDURES PERFORMED: NONE CRITICAL CARE TIME: NONE I HAVE DISCUSSED THE PATIENT WITH THE ATTENDING PHYSICIAN DR. REYEZ AND HE AGREES WITH THE PATIENT'S PLAN OF CARE AND DISPOSITION. BASED ON HISTORY OF PRESENT ILLNESS, AND PHYSICAL EXAM, PATIENT WILL BE DISCHA RGED HOME. DISCUSSED PLAN FOR DISCHARGE HOME WITH RX [KEFLEX AND TRIAMCINOLONE CREAM]. MEDICATION WARNINGS GIVEN. SHARED DECISION MAKING: PATIENT INSTRUCTED TO FOLLOW UP WITH PRIMARY CARE PROVIDER IN 1-2 DAYS FOR RE-EVALUATION OF SYMPTOMS. PATIENT VERBALIZES UNDERSTANDING TO RETURN TO ED FOR NEW OR WORSENING SYMPTOMS OR IF FOLLOW UP WITH PCP CANNOT BE OBTAINED. PATIENT FEELS COMFORTABLE GOING HOME AT THIS TIME. ALL QUESTIONS ADDRESSED AT TIME OF DISCHARGE. Time of 1ST Reevaluation: 14:42 Reevaluation 1ST: Improved Patient Education/Counseling: Diagnosis, Treatment, Need For Follow Up Family Education/Counseling: Diagnosis, Treatment, Need For Follow Up Medical Screening: No EMC Exist At This Time SEPSIS Sepsis Screen Date sepsis recognized/suspect: Aug 12, 2025 Time Sepsis recognized/suspect: 1352 Recent Procedure: No On Antibiotic Therapy: No Respiratory Rate >20: No Heart Rate >90: No Temp<36 C (96.8 F) or >38.3 C: No SBP <90 or MAP <65 mmHG: No New Acute Mental Status Change: No Is the patient on CPAP, BIPAP,: No Vital Signs Date Time Temp Pulse Resp B/P (MAP) Pulse Ox O2 Delivery O2 Flow Rate FiO2 08/12/25 14:35 98.5 82 18 131/89 (103) 98 98.5 08/12/25 14:35 82 18 98 Room Air 08/12/25 13:51 98.5 82 18 131/89 98 98.5 Departure 1 Departure Time of Disposition: 15:00 Impression: Primary Impression: Insect bite of right forearm Qualified Codes: S50.861A - Insect bite (nonvenomous) of right forearm, initial encounter; W57.XXXA - Bitten or stung by nonvenomous insect and other nonvenomous arthropods, initial encounter Disposition: 01 HOME / SELF CARE / HOMELESS Condition: Stable Additional Instructions: FOLLOW-UP WITH PCP IN 1 TO 2 DAYS. TAKE MEDICATIONS PRESCRIBED. RETURN TO ED FOR ANY NEW OR WORSENING SYMPTOMS. e-Prescriptions Cephalexin Monohydrate (Cephalexin) 500 Mg Cap 1 CAP PO QID, #28 CAP Prov: LUCA CHAWLA 08/12/25 Triamcinolone Acetonide (Triamcinolone Acetonide) 0.025 % Cre 1 APPLIC TOP BID, #30 GRAMS Prov: LUCA CHAWLA 08/12/25 Discharged With: Self Critical Care Note Critical Care Time?: No Stability Stability form required: No I personally scribed for LUCA CHAWLA ([email or web address]) on 08/12/25 at 14:35. Electronically submitted by Jace Lundberg ([email or web address]). LUCA CHAWLA Aug 12, 2025 14:35
== END 2025-08-12 14:37 | disposition home or self-care (01) ==
LOC: ER 13:49
DX: S50.861A Insect bite (nonvenomous) of right forearm, initial encounter (principal); D64.9 Anemia, unspecified; Z79.899 Other long term (current) drug therapy; Z87.11 Personal history of peptic ulcer disease; Z90.49 Acquired absence of other specified parts of digestive tract; Z90.89 Acquired absence of other organs; Z98.51 Tubal ligation status; Z98.890 Other specified postprocedural states; W57.XXXA Bitten or stung by nonvenomous insect and other nonvenomous arthropods, initial encounter; Y93.89 Activity, other specified; Y92.89 Other specified places as the place of occurrence of the external cause; Y99.8 Other external cause status

== ENCOUNTER 2025-08-20 05:13 | Emergency (ER) | payer MEDICAID ==
[~2025-08-20] VITALS: Ht 147.3 cm; Wt 77.3 kg
[~2025-08-20 05:13] MED LIST changes: +CEPH500C PO
--- NOTE | 2025-08-20 05:56 | DVH ---
INDICATION: BACK PAIN COMPARISON: None TECHNIQUE: 2 views of the lumbar spine were obtained. FINDINGS: Trace levoscoliosis has its apex about the L3 vertebral body. Anterolisthesis of L4 on L5 measures ap proximately 4 mm. The lumbar vertebral alignment is otherwise normal. The intervertebral disc spaces are well-maintained. No significant facet arthropathy is noted. No acute fracture, vertebral compression deformity or aggressive osseous lesions. The paravertebral soft tissues are grossly unremarkable. IMPRESSION: 1. No acute fracture. 2. Trace levoscoliosis and anterolisthesis of L4 on L5.
--- NOTE | 2025-08-20 06:54 | ED.PDOC ---
Back pain HPI HPI Comments 59 y.o female presents to the ED for a chief complaint of lower back pain s/p picking a stool up last night. Patient reports after picking stool up, head a pop to her lower back and since has had sharp, constant and non radiating pain. She is able to ambulate but states pain does increase. She denies any numbness, tingling sensation, or incontinence. No fall was reported. Chief Complaint: Back Pain Time Seen by MD: 06:30 Primary Care Provider: MANUEL Reviewed Notes: Nurses Notes, Medications, Allergies Allergies: Coded Allergies: NO KNOWN ALLERGIES (Unverified , 01/30/14) Home Meds Active Scripts Cephalexin Monohydrate (Cephalexin) 500 Mg Cap, 1 CAP PO QID, #28 CAP Prov:LUCA CHAWLA 08/12/25 Triamcinolone Acetonide (Triamcinolone Acetonide) 0.025 % Cre, 1 APPLIC TOP BID, #30 GRAMS Prov:LUCA CHAWLA 08/12/25 Hydrocodone-Acetaminophen (Hydrocodone Bitartrate/AC 5-325 mg) 1 Tab Tab, 1 TAB PO BID for 5 Days, #10 TAB Prov:ESTEVAN FLOYD MD 06/18/25 Cyclobenzaprine Hcl (Cyclobenzaprine Hcl) 10 Mg Tab, 10 MG PO TID for 5 Days, #15 TAB Prov:ESTEVAN FLOYD MD 06/18/25 Dexamethasone (Decadron) 4 Mg Tb, 4 MG PO BID for 5 Days, #10 TAB Prov:ESTEVAN FLOYD MD 06/18/25 Naproxen (Naproxen) 500 Mg Tab, 500 MG PO BID, #30 TAB Prov:LUCA CHAWLA 12/03/24 Triamcinolone Acetonide (Triamcinolone Acetonide) 0.025 % Cre, 1 APPLIC TOP BID, #30 GRAMS Prov:LUCA CHAWLA 12/03/24 Sucralfate (CARAFATE SUSP) 1 Gm/10 Ml Ss, 1 GM PO BID@0600,2200 for 30 Days, #60 ML 4 Refills Prov:GIULIA FOWLER DO 12/02/24 Pantoprazole Sodium Sesquihydr (Pantoprazole Sodium) 40 Mg Tab, 40 MG PO BID for 30 Days, #60 TAB 4 Refills Prov:GIULIA FOWLER DO 12/02/24 Ibuprofen Micronized (Ibuprofen) 600 Mg Tab, 600 MG PO Q6HP PRN, #30 TAB Prov:JENNA NAVARRO MD 06/19/24 Acetaminophen (Tylenol Extra Strength) 500 Mg Tab, 1000 MG PO Q6HP PRN, #30 TAB Prov:JENNA NAVARRO MD 06/19/24 Amoxicillin & Pot Clavulanate (AUGMENTIN TABLET) 875 Mg Tb, 875 MG PO BID for 10 Days, #20 TAB Prov:JENNA NAVARRO MD 06/19/24 Reported Medications Gabapentin (Gabapentin) 300 Mg Cap, 300 MG PO PRN for 30 Days, MG 11/28/24 Omeprazole (Prilosec Susp (For Gt)) 20 Mg Ss, 20 MG PO DAILY, ML 11/28/24 Information Source: Patient Mode of Arrival: Ambulatory Timing: Hours Duration: Since onset Location of Back pain: (B) Lower back Severity: Moderate Quality: Sharp Onset: Lifing History of: None Modifying Factors: Nothing Associated signs and symptoms: None Past Medical History PAST MEDICAL HISTORY: Anemia, PUD Surgical History: Cholecystectomy, , Tonsillectomy, Tubal Ligation [employer] History: No Pertinent [employer] History Family History Family History: Reviewed,noncontributory to illness, Family hx of DM Social History Smoker: Non-Smoker Alcohol: Rarely Drugs: Marijuana, Methamphetamine Lives In: Home Constitutional: denies: chills, diaphoresis, fatigue, fever, malaise, sweats, weakness, others EENTM: denies: blurred vision, double vision, ear bleeding, ear discharge, ear drainage, ear pain, ear ringing, eye pain, eye redness, hearing loss, mouth pain, mouth swelling, nasal discharge, nose bleeding, nose congestion, nose pain, photophobia, tearing, throat pain, throat swelling, voice changes, others Respiratory: denies: cough, hemoptysis, orthopnea, SOB at rest, shortness of breath, SOB with excertion, stridor, wheezing, others Cardiovascular: denies: chest pain, dizzy spells, diaphoresis, Dyspnea on exertion, edema, irregular heart beat, left arm pain, lightheadedness, palpitations, PND, syncope, others Gastrointestinal: denies: abdomen distended, abdominal pain, blood streaked bowels, constipated, diarrhea, dysphagia, difficulty swallowing, hematemesis, melena, nausea, poor appetite, poor fluid intake, rectal bleeding, rectal pain, vomiting, others Genitourinary: denies: abnormal vagina bleeding, burning, dyspareunia, dysuria, flank pain, frequency, hematuria, incontinence, pain, , vagina discharge, urgency, others Neurological: denies: dizziness, fainting, headache, left sided numbness, left sided weakness, numbness, paresthesia, pre-existing deficit, right sided numbness, right sided weakness, seizure, speech problems, tingling, tremors, weakness, others Musculoskeletal: reports: back pain; denies: gout, joint pain, joint swelling, muscle pain, muscle stiffness, neck pain, others Integumetry: denies: bruises, change in color, change in hair/nails, dryness, laceration, lesions, lumps, rash, wounds, others Allergic/Immunocompromised: denies: Difficulty Healing, Frequent Infections, Hives, Itching, others Hematologic/Lymphatic: denies: anemia, blood clots, easy bleeding, easy bruising, swollen glands, others Endocrine: denies: excessive hunger, excessive sweating, excessive thirst, excessive urination, flushing, intolerance to cold, intolerance to heat, u nexplained weight gain, unexplained weight loss, others Psychiatric: denies: anxiety, bipolar disorder, depression, hopeless, panic disorder, schizophrenia, sleepless, suicidal, others All Other Systems: Reviewed and Negative Physical Exam General Appearance: Moderate Distress HEENT: Normal ENT Inspection, Pharynx Normal, TMs Normal Neck: Full Range of Motion, Non-Tender, Normal, Normal Inspection Respiratory: Chest Non-Tender, Lungs Clear, No Accessory Muscle Use, No Respiratory Distress, Normal Breath Sounds Cardiovascular: No Edema, No JVD, No Murmur, No Gallop, Normal Peripheral Pulses, Regular Rate/Rhythm Breast Exam: Deferred Gastrointestinal: No Organomegaly, Non Tender, No Pulsatile Mass, Normal Bowel Sounds, Soft Genitalia: Deferred Pelvic: Deferred Rectal: Deferred Extremities: No calf tenderness, Normal capillary refill, Normal inspection, Normal range of motion, Non-tender, No pedal edema Musculoskeletal : Apperance: Normal Neurologic: Alert, data warehousing manager II-XII nml as Tested, No Motor Deficits, Normal Affect, Normal Mood, No Sensory Deficits Cerebellar Function: Normal Reflexes: Normal Skin: Dry, Normal Color, Warm Peripheral Pulses: 3+ Radial (R), 3+ Radial (L) Lymphatic: No Adenopathy Was a procedure done? Was a procedure done?: No Back Pain Differential Dx Differential Diagnosis: DJD, Fracture, Musculoskeletal Pain, Strain X-Ray, Labs, Meds, VS Vital Signs Date Time Temp Pulse Resp B/P (MAP) Pulse Ox O2 Delivery O2 Flow Rate FiO2 08/20/25 05:15 97.9 72 16 142/88 97 97.9 [place] [id number] Ph: [phone] DIAGNOSTIC IMAGING Diagnostic Imaging Report : [id number] Signed PATIENT: CARMEN DUPONT ACCT: [id number] UNIT: [id number] : 1965 LOC: ER ROOM / BED: / AGE / SEX: 59 / F ADM STATUS: REG ER SERVICE 0 ORDERING PHYSICIAN: ASHOK LOWE PROCEDURE(s): LUMB2 - LUMBAR SPINE 3 VIEW REASON: BACK PAIN ORDER NUMBER(s): [id number], ACCESSION NUMBER(s): [id number] INDICATION: BACK PAIN COMPARISON: None TECHNIQUE: 2 views of the lumbar spine were obtained. FINDINGS: Trace levoscoliosis has its apex about the L3 vertebral body. Anterolisthesis of L4 on L5 measures approximately 4 mm. The lumbar vertebral alignment is otherwise normal. The intervertebral disc spaces are well-maintained. No significant facet arthropathy is noted. No acute fracture, vertebral compression deformity or aggressive osseous lesions. The paravertebral soft tissues are grossly unremarkable. IMPRESSION: 1. No acute fracture. 2. Trace levoscoliosis and anterolisthesis of L4 on L5. ATED BY: ANDERSON STOVER MD DICTATED DATE/TIME: 08/20/25553 SIGNED BY: ANDERSON STOVER MD SIGNED DATE/TIME: 08/20/25553 CC: Patient alert. Complaining of back pain. X-ray reviewed does not show any acute fracture. Vitals stable. Was given pain medication. Was given prescription of Motrin. Explained to the patient. Was told to follow up with her primary care physician. Was told to come back if there is any problem. Time of 1ST Reevaluation: 06:51 Reevaluation 1ST: Improved Patient Education/Counseling: Diagnosis, Treatment, Prognosis Family Education/Counseling: No Family Present SEPSIS Sepsis Screen Date sepsis recognized/suspect: Aug 20, 2025 Time Sepsis recognized/suspect: 0519 Recent Procedure: No On Antibiotic Therapy: No Respiratory Rate >20: No Heart Rate >90: No Temp<36 C (96.8 F) or >38.3 C: No SBP <90 or MAP <65 mmHG: No New Acute Mental Status Change: No Is the patient on CPAP, BIPAP,: No Physician Orders Lumbar Spine 3 View (08/20/25 05:21) Vital Signs Date Time Temp Pulse Resp B/P (MAP) Pulse Ox O2 Delivery O2 Flow Rate FiO2 08/20/25 05:15 97.9 72 16 142/88 97 97.9 Departure 1 Departure Time of Disposition: 07:16 Impression: Primary Impression: Spondylolisthesis at L4-L5 level Additional Impression: Lumbar sprain Qualified Codes: S33.5XXA - Sprain of ligaments of lumbar spine, initial encounter Disposition: 01 HOME / SELF CARE / HOMELESS Condition: Good e-Prescriptions Ibuprofen Micronized (MOTRIN TABLET) 600 Mg Tb 600 MG PO TID PRN for 3 Days, #9 TAB *Black box warning-NSAIDS can increase risk of MD & hypertension, GI irritation, ulceration, bleed, perferation. Do not use post cardiac surgery. Use short duration/lowest effective dose. Prov: ARVIND REYEZ MD 08/20/25 Discharged With: Self Critical Care Note Critical Care Time?: No Stability Stability form required: No I personally scribed for AVRIND REYEZ MD ([email or web address]) on 08/20/25 at 06:54. Electronically submitted by Adali Brooks ([facility]). I personally scribed for ARVIND REEYZ MD ([email or web address]) on 08/20/25 at 06:54. Electronically submitted by Adali Brooks ([facility]). ARVIND REYEZ MD Aug 20, 2025 06:54
[2025-08-20] MEDS ORDERED: IBU600T PO (07:17)
[2025-08-20] MEDS: KETOROLAC TROMETH 60MG/2ML VIAL IM ONE (07:34)
[2025-08-20 07:35] VITALS: BP 143/85; PULSE 63; RESP 16; TEMP 97.9; O2SAT 100
== END 2025-08-20 08:06 | disposition home or self-care (01) ==
LOC: ER 05:15
DX: S33.5XXA Sprain of ligaments of lumbar spine, initial encounter (principal); M43.16 Spondylolisthesis, lumbar region; Z90.89 Acquired absence of other organs; Z90.49 Acquired absence of other specified parts of digestive tract; Z98.51 Tubal ligation status; Z79.899 Other long term (current) drug therapy; X58.XXXA Exposure to other specified factors, initial encounter; Y93.89 Activity, other specified; Y92.89 Other specified places as the place of occurrence of the external cause; Y99.8 Other external cause status
CPT/HCPCS: 72100; 96372; 99283; J1885